=== PATIENT | male | born 1950 | race Caucasian/White ===

== ENCOUNTER 2022-06-22 07:44 | Day surgery (SDC) | payer MEDICARE, SELFPAY ==
[2022-06-16 10:12] VITALS: BMI 38.3
--- NOTE | 2022-06-22 08:07 | WPDHPUPDATE1 ---
History and Physical Update Update Date/Time: 06/22/22 08:07 History and Physical has been reviewed, including an updated exam of the patient. There are NO changes in the patient's condition. Risks, benefits, and alternatives have been discussed and questions answered. Patient agrees to proceed with procedure.
[2022-06-22 08:35] VITALS: BP 181/83; PULSE 54; RESP 20; TEMP 36.7; O2SAT 100
--- NOTE | 2022-06-22 08:35 | WPDANESEPPF ---
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 Patient Data Age: 72 Gender: M Height: 1.7 m Weight: 111 kg Allergies Allergy/AdvReac Type Severity Reaction Status Date / Time lisinopril AdvReac Unknown cough Verified 06/16/22 10:16 Home Medications Medication Instructions Recorded Confirmed Type aspirin 81 mg tablet,delayed 81 mg PO DAILY 02/18/19 06/16/22 History release vit C 50 mg-E 15 unit-zinc cit 4.5 1 tablet PO DAILY 02/18/19 06/16/22 History mg-lutein 2.5 mg-zeaxan chew tablet (iLost) multivitamin 1 tablet PO DAILY 02/19/19 06/16/22 History nitroglycerin 0.4 mg sublingual 0.4 mg sublingual Q5M PRN chest 12/22/20 06/16/22 Rx tablet (Nitrostat) pain #20 tabs metoprolol tartrate 50 mg tablet See Rx Instructions .Route 03/22/22 06/16/22 Rx .COMPLEX #90 tabs valsartan 160 1 tablet PO DAILY #90 tabs 04/12/22 06/16/22 Rx mg-hydrochlorothiazide 12.5 mg tablet clopidogrel 75 mg tablet See Rx Instructions .Route 04/29/22 06/16/22 Rx .COMPLEX #90 tabs atorvastatin 80 mg tablet 80 mg PO HS 06/16/22 06/16/22 History fluticasone propionate 50 2 spray intranasal BID PRN 06/16/22 06/16/22 History mcg/actuation nasal ALLERGIES spray,suspension (Flonase Allergy Relief) Patient hx anesthesia problems: none Family hx anesthesia problems: none Results Review: All pre-operative results and documents have been reviewed as part of the pre-operative evaluation. [facility] Past Medical History Medical History (Updated 06/22/22 @ 08:36 by Augusto Denis MD) Acute otitis media Asbestos exposure Coronary atherosclerosis of [place] coronary artery Essential (primary) hypertension Hepatitis C antibody test negative (~01/13/17) Metabolic syndrome Mixed hyperlipidemia Obesity, unspecified Prediabetes Surgical History Surgical History History of colonoscopy (~07/23/07) History of coronary angioplasty (~1995) Hx of CABG (~03/27/15) Hx of CABG (~05/25/05) Hx of cholecystectomy (~03/27/17) Family History Family History Mother Family history of coronary artery disease, Onset Age: 89 Family history of cardiovascular disease Family history of chronic obstructive pulmonary disease Father Family history of coronary artery disease, Onset Age: 93 Hypertension Family history of elevated blood lipids Family history of cardiovascular disease Acute myocardial infarction Family history of atrial fibrillation Other Family history of allergic disorder Social History Social History (Updated 02/28/22 @ 10:15 by Shila Hudson [facility]) Social History: Caffeine-coffee daily Smoking packs per day: 1 Smoking cigarettes per day: 20.0 Years smoked: 7 Smoking pack-years: 7.00 Smoking status: Former smoker Tobacco type: cigarettes Second hand tobacco smoke exposure: Yes Smoking end date: 03/27/77 Alcohol intake: current Drinks per week: 7 Alcohol use details: beer Substance use: never Lack of Transportation: No Lack of Food: Never True Current Housing: I Have Housing Concerned About Future Housing: No Difficulty Paying Gas/Electric Bills: No Difficulty Paying for Meds: No Currently Unemployed: Decline to Answer Education: Associate Degree Difficulty w/ Childcare or Family Care: No Living arrangements: with family Spiritual care concerns: No Anes - Eval Final PreProcedure Day of Procedure 06/22/22 08:35 Patient weight: obese Heart: regular rate and rhythm Lungs: clear to auscultation and normal air movement Airway: Mallampati scale class II Neurological: alert and oriented L
[2022-06-22] MEDS: TETRACAINE HCL 0.5% OPHTH SOLN 4 ML BTL 1 DROP AFFCTD EYE ×3 (08:55→09:06)
[2022-06-22] MEDS: OFLOXACIN 0.3% OPHTH SOLN 5 ML BTL 1 DROP AFFCTD EYE (08:55)
[2022-06-22] MEDS: LIDOCAINE HCL 1% PF INJ 5 ML VIAL 1 ML AFFCTD EYE (09:58)
[2022-06-22] MEDS: NEOMYCIN/POLYMYXIN/DEXAMETH OP OINT 3.5 GM TUBE 1 APPLIC AFFCTD EYE (09:59)
[2022-06-22 10:06] VITALS: BP 165/101; PULSE 77; RESP 16; O2SAT 98
[2022-06-22] MEDS: acetaZOLAMIDE TAB 250 MG TABLET PO (10:08)
--- NOTE | 2022-06-22 11:48 | W.PM.PROC2 ---
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 After intravenous sedation and placement of monitors, the patient was prepped and draped in the usual sterile manner. A lid speculum was placed. A paracentesis was made, and preservative free 1% lidocaine was instilled in the anterior chamber. The anterior chamber was then filled with Viscoat viscoelastic. A bernard keratome was used to create the wound. Continuous tear anterior capsulotomy was performed. The lens was hydro dissected before being removed with phacoemulsification. The remaining lenticular cortex was removed with aspiration. The capsular bag was polished and filled with viscoelastic material. An intraocular lens was chosen, inspected, irrigated and placed within the capsular bag where it was seen to be centered and stable. The viscoelastic material was aspirated. The wound was closed and found to be watertight. Ciloxan drops were placed in the eye. The speculum was removed. A Rodriguez shield was applied. The patient tolerated the procedure well and left the operating room in satisfactory condition. Implants See chart Complications None Condition Stable Disposition Same day
--- NOTE | 2022-06-22 11:51 | WPDANESPN ---
Anes - Prog Note Post-Op Date/Time: 06/22/22 11:51 Cardiovascular status: normal Respiratory status: normal Airway patency: baseline Mental status: baseline Post-Op hydration status: normal Vital Signs: Last Vital Signs Temp 36.7 C 06/22/22 08:35 Pulse 77 06/22/22 10:06 Resp 16 06/22/22 10:06 BP 165/101 H 06/22/22 10:06 Pulse Ox 98 06/22/22 10:06 O2 Del Method Room Air 06/22/22 10:06 Pain Score (VAS): 0 Post-procedural complaints: none Patient Feedback: Patient satisfied with anesthetic care.
== END 2022-06-22 10:19 | disposition home or self-care (01) ==
PROVIDERS: PCP Family Medicine; Visit Provider Student in an Organized Health Care Education/Training Program
PROC: (CPT 66983; principal; 2022-06-22 09:10)
DX: H25.11 Age-related nuclear cataract, right eye (principal)
CPT/HCPCS: 66984

== ENCOUNTER 2022-07-26 13:53 | Outpatient (CLI) | payer MEDICARE, SELFPAY ==
--- NOTE | ~2022-07-26 | US_ITS ---
EXAMINATION: US art doppler w press LE BI DATE: 07/26/2022 15:50 INDICATION: Peripheral arterial disease. TECHNIQUE: Segmental pressures and plethysmographic and Doppler waveforms of the brachial and lower e xtremity arteries were obtained. COMPARISON: None. FINDINGS: Right and left brachial artery pressures of 151 mm Hg and 140 mm Hg, respectively, are concordant (no rmal difference <= 30 mmHg). The right thigh and below-knee pressures could not be measured due to inability to cuff occlude the a rteries. The right ankle-brachial index (LOU) is 1.05 (normal >= 0.9-1.0). The right great toe-brachi al index (TBI) is 0.22 (normal >= 0.65). Arterial Doppler waveforms are biphasic from common femoral artery to dorsalis pedis and triphasic in posterior tibial artery. The left thigh, below knee, and ankle pressures could not be measured due to inability to cuff occlud e the arteries. The left LOU could not be measured. The left TBI is 0.26. Arterial Doppler waveforms are biphasic from common femoral artery to the ankle. IMPRESSION: 1. Decreased TBIs, normal right LOU, nondiagnostic left LOU, consistent with arterial occlusive disea se. Note that ABIs may be overestimated if arteries are calcified. Reviewed, dictated and finalized at location A. IMPRESSION: 1. Decreased TBIs, normal right LOU, nondiagnostic left LOU, consistent with ar terial occlusive disease. Note that ABIs may be overestimated if arteries are c alcified.
== END 2022-07-26 13:54 | disposition home or self-care (01) ==
PROVIDERS: PCP Family Medicine; Visit Provider Podiatrist Foot & Ankle Surgery
DX: I73.9 Peripheral vascular disease, unspecified (principal); Z01.818 Encounter for other preprocedural examination
CPT/HCPCS: 93923

== ENCOUNTER 2022-11-29 13:31 | Emergency (ER) | payer MEDICARE, SELFPAY ==
--- NOTE | 2022-11-29 13:36 | ED.URI ---
HPI - URI/Sore Throat General Chief Complaint: Upper Respiratory Infection Stated Complaint: Sinus Infection;Fever Source: patient and RN notes reviewed History of Present Illness HPI Narrative: 72 yo M presents to urgent care with complaints of congestion, sinus tenderness, his upper teeth hurting, and low grade fever the other night. Pt states his symptoms started Monday evening and believe they are getting worse. Denies any chest pain, SOB, vomiting, or diarrhea. Denies any ear pain or sore throat. Pt has been taking Flonase and Sudafed at home. Related Data Home Medications Medication Instructions Recorded Confirmed vit C 50 mg-E 15 unit-zinc cit 4.5 1 tablet PO DAILY 02/18/19 11/29/22 mg-lutein 2.5 mg-zeaxan chew tablet ([place]) multivitamin 1 tablet PO DAILY 02/19/19 11/29/22 fluticasone propionate 50 2 spray intranasal BID PRN 06/16/22 11/29/22 mcg/actuation nasal ALLERGIES spray,suspension (Flonase Allergy Relief) nitroglycerin 0.4 mg sublingual 0.4 mg sublingual Q5M PRN chest 11/08/22 11/29/22 tablet (Nitrostat) pain rivaroxaban 20 mg tablet (Xarelto) 20 mg PO DAILY 11/08/22 11/29/22 Allergies Allergy/AdvReac Type Severity Reaction Status Date / Time lisinopril AdvReac Unknown cough Verified 11/29/22 13:36 Review of Systems Review of Systems: Pertinent positives and pertinent negatives per HPI. [facility] Past Medical History Medical History Acute otitis media Asbestos exposure Coronary atherosclerosis of [place] coronary artery Essential (primary) hypertension Hepatitis C antibody test negative (~01/13/17) Metabolic syndrome Mixed hyperlipidemia Obesity, unspecified Prediabetes Surgical History Surgical History History of colonoscopy (~07/23/07) History of coronary angioplasty (~1995) Hx of CABG (~03/27/15) Hx of CABG (~05/25/05) Hx of cholecystectomy (~03/27/17) Family History Family History Mother Family history of coronary artery disease, Onset Age: 89 Family history of cardiovascular disease Family history of chronic obstructive pulmonary disease Father Family history of coronary artery disease, Onset Age: 93 Hypertension Family history of elevated blood lipids Family history of cardiovascular disease Acute myocardial infarction Family history of atrial fibrillation Other Family history of allergic disorder Social History Social History Social History: Caffeine-coffee daily Smoking packs per day: 1 Smoking cigarettes per day: 20.0 Years smoked: 7 Smoking pack-years: 7.00 Smoking status: Former smoker Tobacco type: cigarettes Second hand tobacco smoke exposure: Yes Smoking end date: 03/27/77 Alcohol intake: current Drinks per week: 7 Alcohol use details: beer Substance use: never Lack of Transportation: No Lack of Food: Never True Current Housing: I Have Housing Concerned About Future Housing: No Difficulty Paying Gas/Electric Bills: No Difficulty Paying for Meds: No Currently Unemployed: Decline to Answer Education: Associate Degree Difficulty w/ Childcare or Family Care: No Living arrangements: with family Spiritual care concerns: No Comments At the time of my signature, I reviewed and agree with the nursing past medical, surgical, social, and family history. There is no relevant family history pertinent to the patient complaint. Exam Narrative: GENERAL: This is a well-nourished, well-developed patient, in no apparent distress. HEAD: normocephalic, atraumatic. EYES: Sclera clear/white. Vision is grossly intact. EARS: External ears normal, auditory canals clear and without drainage, TMs normal without perforation. Hearing grossly intact. NOSE: External nose norm
[2022-11-29 13:42] VITALS: BP 136/74; PULSE 76; RESP 18; TEMP 36.3; O2SAT 99
[2022-11-29 13:43] VITALS: BP 136/74; PULSE 76; RESP 18; TEMP 36.3; O2SAT 99
== END 2022-11-29 13:50 | disposition home or self-care (01) ==
PROVIDERS: Emergency Provider Nurse Practitioner Family; PCP Family Medicine
DX: J32.9 Chronic sinusitis, unspecified (principal); Z87.891 Personal history of nicotine dependence; I25.10 Atherosclerotic heart disease of native coronary artery without angina pectoris; I10 Essential (primary) hypertension; E78.2 Mixed hyperlipidemia; E66.9 Obesity, unspecified; Z68.39 Body mass index [BMI] 39.0-39.9, adult; E88.81 Metabolic syndrome and other insulin resistance; Z95.1 Presence of aortocoronary bypass graft
CPT/HCPCS: 99213; G0463

== ENCOUNTER 2022-12-27 01:27 | Day surgery (SDC) | payer MEDICARE, SELFPAY ==
[2022-12-20 08:35] VITALS: BMI 38.7
[2022-12-27 08:07] VITALS: BP 148/77; PULSE 77; RESP 20; TEMP 36.2; O2SAT 99
[2022-12-27] MEDS: LACTATED RINGERS 1,000 ML 150 ML IV CONT (08:14)
--- NOTE | 2022-12-27 08:50 | PM.HPGS ---
History of Present Illness History of Present Illness Consent: Risks, benefits, and alternatives have been discussed and questions answered. Patient agrees to proceed with procedure. Chief complaint: hx colon polyps Narrative: Jimy Ryder is a 72 year old male Presents for screening colonoscopy. Patient was found to have adenomatous colon polyp removed at the time of previous colonoscopy in 2018. Patient's current weight appetite and bowel movements are normal. Patient denies abdominal pain. He has had no bleeding. Family history noncontributory. Review of Systems Review of Systems: Review of systems noncontributory. [facility] Past Medical History Medical History Acute otitis media Asbestos exposure Coronary atherosclerosis of [place] coronary artery Essential (primary) hypertension Hepatitis C antibody test negative (~01/13/17) Metabolic syndrome Mixed hyperlipidemia Obesity, unspecified Prediabetes Surgical History Surgical History History of colonoscopy (~07/23/07) History of coronary angioplasty (~1995) Hx of CABG (~03/27/15) Hx of CABG (~05/25/05) Hx of cholecystectomy (~03/27/17) Family History Family History Mother Family history of coronary artery disease, Onset Age: 89 Family history of cardiovascular disease Family history of chronic obstructive pulmonary disease Father Family history of coronary artery disease, Onset Age: 93 Hypertension Family history of elevated blood lipids Family history of cardiovascular disease Acute myocardial infarction Family history of atrial fibrillation Other Family history of allergic disorder Social History Social History Social History: Caffeine-coffee daily Smoking packs per day: 1 Smoking cigarettes per day: 20.0 Years smoked: 7 Smoking pack-years: 7.00 Smoking status: Former smoker Tobacco type: cigarettes Second hand tobacco smoke exposure: Yes Smoking end date: 03/27/77 Alcohol intake: current Drinks per week: 1 Alcohol use details: beer Substance use: never Substance use type: does not use Lack of Transportation: No Lack of Food: Never True Current Housing: I Have Housing Concerned About Future Housing: No Difficulty Paying Gas/Electric Bills: No Difficulty Paying for Meds: No Currently Unemployed: Decline to Answer Education: Associate Degree Difficulty w/ Childcare or Family Care: No Living arrangements: with family Spiritual care concerns: No Meds Home Medications and Allergies Home Medications Medication Instructions Recorded Confirmed Type vit C 50 mg-E 15 unit-zinc cit 4.5 1 tablet PO DAILY 02/18/19 12/27/22 History mg-lutein 2.5 mg-zeaxan chew tablet (ARI) multivitamin 1 tablet PO DAILY 02/19/19 12/27/22 History fluticasone propionate 50 2 spray intranasal BID PRN 06/16/22 12/27/22 History mcg/actuation nasal ALLERGIES spray,suspension (Flonase Allergy Relief) valsartan 160 1 tablet PO DAILY #90 tabs 07/06/22 12/27/22 Rx mg-hydrochlorothiazide 12.5 mg tablet atorvastatin 80 mg tablet 80 mg PO HS #90 tabs 07/18/22 12/27/22 Rx nitroglycerin 0.4 mg sublingual 0.4 mg sublingual Q5M PRN chest 11/08/22 12/27/22 History tablet (Nitrostat) pain rivaroxaban 20 mg tablet (Xarelto) 20 mg PO DAILY 11/08/22 12/27/22 History acetaminophen 500 mg tablet 1,000 mg PO DAILY 12/20/22 12/27/22 History (Acetaminophen Extra Strength) clopidogrel 75 mg tablet 75 mg PO DAILY 12/20/22 12/27/22 History metoprolol tartrate 50 mg tablet 25 mg PO BID 12/20/22 12/27/22 History phenylephrine HCl 10 mg tablet 10 mg PO BID 12/20/22 12/27/22 History doxycycline hyclate 20 mg tablet 20 mg PO Q12H 12/22/22 12/27/22 History Allergies
--- NOTE | 2022-12-27 09:21 | WPDANESEPPF ---
Anes - Initial Pre Proc Eval Procedure: Operation Date: 12/27/22 09:30 Proposed Procedures p Colonoscopy - Pablo Whitten MD Date/Time: 12/27/22 09:21 Surgeon: Pablo Whitten MD Pre Op Diagnosis: hx colon polyps Patient Data Age: 72 Gender: M Height: 1.68 m Weight: 110.5 kg Last Vital Signs Temp 97.1 F L 12/27/22 08:07 Pulse 77 12/27/22 08:07 Resp 20 12/27/22 08:07 BP 148/77 H 12/27/22 08:07 Pulse Ox 99 12/27/22 08:07 O2 Del Method Room Air 12/27/22 08:07 Allergies Allergy/AdvReac Type Severity Reaction Status Date / Time No Known Allergies Allergy Verified 12/27/22 08:06 Home Medications Medication Instructions Recorded Confirmed Type vit C 50 mg-E 15 unit-zinc cit 4.5 1 tablet PO DAILY 02/18/19 12/27/22 History mg-lutein 2.5 mg-zeaxan chew tablet (In[place]z) multivitamin 1 tablet PO DAILY 02/19/19 12/27/22 History fluticasone propionate 50 2 spray intranasal BID PRN 06/16/22 12/27/22 History mcg/actuation nasal ALLERGIES spray,suspension (Flonase Allergy Relief) valsartan 160 1 tablet PO DAILY #90 tabs 07/06/22 12/27/22 Rx mg-hydrochlorothiazide 12.5 mg tablet atorvastatin 80 mg tablet 80 mg PO HS #90 tabs 07/18/22 12/27/22 Rx nitroglycerin 0.4 mg sublingual 0.4 mg sublingual Q5M PRN chest 11/08/22 12/27/22 History tablet (Nitrostat) pain rivaroxaban 20 mg tablet (Xarelto) 20 mg PO DAILY 11/08/22 12/27/22 History acetaminophen 500 mg tablet 1,000 mg PO DAILY 12/20/22 12/27/22 History (Acetaminophen Extra Strength) clopidogrel 75 mg tablet 75 mg PO DAILY 12/20/22 12/27/22 History metoprolol tartrate 50 mg tablet 25 mg PO BID 12/20/22 12/27/22 History phenylephrine HCl 10 mg tablet 10 mg PO BID 12/20/22 12/27/22 History doxycycline hyclate 20 mg tablet 20 mg PO Q12H 12/22/22 12/27/22 History Patient hx anesthesia problems: none Family hx anesthesia problems: none Results Review: All pre-operative results and documents have been reviewed as part of the pre-operative evaluation. [facility] Past Medical History Medical History Acute otitis media Asbestos exposure Coronary atherosclerosis of [place] coronary artery Essential (primary) hypertension Hepatitis C antibody test negative (~01/13/17) Metabolic syndrome Mixed hyperlipidemia Obesity, unspecified Prediabetes Surgical History Surgical History History of colonoscopy (~07/23/07) History of coronary angioplasty (~1995) Hx of CABG (~03/27/15) Hx of CABG (~05/25/05) Hx of cholecystectomy (~03/27/17) Family History Family History Mother Family history of coronary artery disease, Onset Age: 89 Family history of cardiovascular disease Family history of chronic obstructive pulmonary disease Father Family history of coronary artery disease, Onset Age: 93 Hypertension Family history of elevated blood lipids Family history of cardiovascular disease Acute myocardial infarction Family history of atrial fibrillation Other Family history of allergic disorder Social History Social History Social History: Caffeine-coffee daily Smoking packs per day: 1 Smoking cigarettes per day: 20.0 Years smoked: 7 Smoking pack-years: 7.00 Smoking status: Former smoker Tobacco type: cigarettes Second hand tobacco smoke exposure: Yes Smoking end date: 03/27/77 Alcohol intake: current Drinks per week: 1 Alcohol use details: beer Substance use: never Substance use type: does not use Lack of Transportation: No Lack of Food: Never True Current Housing: I Have Housing Concerned About Future Housing: No Difficulty Paying Gas/Electric Bills: No Difficulty Paying for Meds: No Currently Unemployed: Decline to Answer Education: As
[2022-12-27 09:42] VITALS: BP 121/76; PULSE 74; RESP 22; O2SAT 94
[2022-12-27 09:52] VITALS: BP 119/69; PULSE 64; RESP 20; O2SAT 97
[2022-12-27 10:02] VITALS: BP 145/68; PULSE 72; RESP 16; O2SAT 97
== END 2022-12-27 10:12 | disposition home or self-care (01) ==
PROVIDERS: PCP Family Medicine; Visit Provider Internal Medicine Gastroenterology
PROC: 0DJD8ZZ Inspection of Lower Intestinal Tract, Via Natural or Artificial Opening Endoscopic (ICD-10-PCS; CPT 45378; principal; 2022-12-27 09:30)
DX: Z12.11 Encounter for screening for malignant neoplasm of colon (principal); K57.30 Diverticulosis of large intestine without perforation or abscess without bleeding; Z86.010 Personal history of colon polyps; I25.10 Atherosclerotic heart disease of native coronary artery without angina pectoris; I10 Essential (primary) hypertension; E78.2 Mixed hyperlipidemia; R73.03 Prediabetes; E66.01 Morbid (severe) obesity due to excess calories; Z68.39 Body mass index [BMI] 39.0-39.9, adult; Z95.1 Presence of aortocoronary bypass graft; Z79.01 Long term (current) use of anticoagulants; Z79.02 Long term (current) use of antithrombotics/antiplatelets; Z87.891 Personal history of nicotine dependence
CPT/HCPCS: G0105; J2704; J7120

== ENCOUNTER 2023-07-19 09:16 | Outpatient (CLI) | payer MEDICARE, SELFPAY ==
--- NOTE | ~2023-07-19 | US_ITS ---
EXAMINATION: US soft tissue chest DATE: 07/19/2023 09:34 INDICATION: Intra-abdominal and pelvic swelling, mass and lump. TECHNIQUE: Multiple grayscale and Doppler ultrasound images of the chest were obtained. COMPARISON: chest CT 09/19/2005 FINDINGS: There is a subcutaneous shadowing mass to the left of midline in the area of the sternum. IMPRESSION: 1. Subcutaneous mass to the left of midline in the area of the sternum, most likely a component of th e patient's wire fixation from old sternotomy. Reviewed, dictated and finalized at location E. IMPRESSION: 1. Subcutaneous mass to the left of midline in the area of the sternum, most li nyasia a component of the patient's wire fixation from old sternotomy.
== END 2023-07-19 09:17 ==
PROVIDERS: PCP Family Medicine; Visit Provider Nurse Practitioner
DX: R19.00 Intra-abdominal and pelvic swelling, mass and lump, unspecified site (principal)
CPT/HCPCS: 76604

== ENCOUNTER 2023-08-04 11:43 | Emergency (ER) | payer MEDICARE, SELFPAY ==
--- NOTE | ~2023-08-04 | XR_ITS ---
EXAMINATION: XR chest 2V DATE: 08/04/2023 12:13 INDICATION: Productive cough. Wheezing. TECHNIQUE: Frontal and lateral views of the chest were obtained. COMPARISON: Chest 2 views 05/13/2015 FINDINGS: There is no pneumonia, pleural effusion, or pneumothorax. The heart size is normal. There a re prominent pericardial fat pads. Median sternotomy wires and mediastinal surgical clips are seen, l ikely from prior coronary artery bypass grafting. Surgical clips in the right upper quadrant are like ly from cholecystectomy. IMPRESSION: 1. No acute cardiopulmonary disease. Reviewed, dictated and finalized at location A.
--- NOTE | 2023-08-04 11:49 | ED.URI ---
HPI - URI/Sore Throat General Chief Complaint: Upper Respiratory Infection Stated Complaint: COUGH Time Seen by Provider: 08/04/23 11:50 Source: patient Mode of arrival: ambulatory Limitations: no limitations History of Present Illness HPI Narrative: Jimy is a 73-year-old male patient presenting to the clinic today with complaints cough, sinus congestion, and headache x3 weeks. He reports he is coughing up clear to whitish phlegm. Denies any shortness of breath but is having a lot of mucus and cannot coughing. States he has had a low-grade fever of 99-100 degrees F. Former smoker. No history of COPD or asthma. MD elicited complaint: cough, nasal congestion and sinus pain Related Data Home Medications Medication Instructions Recorded Confirmed multivitamin 1 tablet PO DAILY 02/19/19 08/04/23 fluticasone propionate 50 2 spray intranasal BID PRN 06/16/22 08/04/23 mcg/actuation nasal ALLERGIES spray,suspension (Flonase Allergy Relief) rivaroxaban 20 mg tablet (Xarelto) 20 mg PO DAILY 11/08/22 08/04/23 acetaminophen 500 mg tablet 1,000 mg PO DAILY 12/20/22 08/04/23 (Acetaminophen Extra Strength) vitamins A,C,E-gnhy-caqadv 2,148 2 tablet PO BID 08/04/23 08/04/23 mcg-113 mg-45 mg-17.4 mg tablet (PreserVision AREDS) Allergies Allergy/AdvReac Type Severity Reaction Status Date / Time No Known Allergies Allergy Verified 08/04/23 11:51 Review of Systems Review of Systems: Pertinent positives per HPI. Patient denies any fever, chills, rash, headache, visual changes, dizziness, shortness of breath, chest pain, palpitations, nausea, vomiting, diarrhea, constipation, abdominal pain, or any urinary issues. [facility] Past Medical History Medical History Acute otitis media Asbestos exposure Coronary atherosclerosis of [place] coronary artery Essential (primary) hypertension Hepatitis C antibody test negative (~01/13/17) Metabolic syndrome Mixed hyperlipidemia Obesity, unspecified Prediabetes Surgical History Surgical History History of colonoscopy (~07/23/07) History of coronary angioplasty (~1995) Hx of CABG (~03/27/15) Hx of CABG (~05/25/05) Hx of cholecystectomy (~03/27/17) Family History Family History Mother Family history of coronary artery disease, Onset Age: 89 Family history of cardiovascular disease Family history of chronic obstructive pulmonary disease Father Family history of coronary artery disease, Onset Age: 93 Hypertension Family history of elevated blood lipids Family history of cardiovascular disease Acute myocardial infarction Family history of atrial fibrillation Other Family history of allergic disorder Social History Social History Social History: Caffeine-coffee daily Smoking packs per day: 1 Smoking cigarettes per day: 20.0 Years smoked: 7 Smoking pack-years: 7.00 Smoking status: Former smoker Tobacco type: cigarettes Second hand tobacco smoke exposure: Yes Smoking end date: 03/27/77 Alcohol intake: current Drinks per week: 1 Alcohol use details: beer Substance use: never Substance use type: does not use Lack of Transportation: No Lack of Food: Never True Current Housing: I Have Housing Concerned About Future Housing: No Difficulty Paying Gas/Electric Bills: No Difficulty Paying for Meds: No Currently Unemployed: Decline to Answer Education: Associate Degree Difficulty w/ Childcare or Family Care: No Living arrangements: with family Spiritual care concerns: No Comments At the time of my signature, I reviewed and agree with the nursing past medical, surgical, social, and family history. There is no relevant family history pertinent to the patient complaint. Exam Narrative:
[2023-08-04 11:58] VITALS: BP 159/92; PULSE 89; RESP 16; TEMP 36.3; O2SAT 99
== END 2023-08-04 12:39 | disposition home or self-care (01) ==
PROVIDERS: Emergency Provider Nurse Practitioner Family; PCP Nurse Practitioner
DX: J40 Bronchitis, not specified as acute or chronic (principal); I25.10 Atherosclerotic heart disease of native coronary artery without angina pectoris; I10 Essential (primary) hypertension; E78.2 Mixed hyperlipidemia; E66.9 Obesity, unspecified; Z68.38 Body mass index [BMI] 38.0-38.9, adult; Z87.891 Personal history of nicotine dependence; Z79.01 Long term (current) use of anticoagulants
CPT/HCPCS: 71046; 99213; G0463

== ENCOUNTER 2023-11-14 14:20 | Outpatient (CLI) | payer MEDICARE, SELFPAY ==
--- NOTE | ~2023-11-14 | XR_ITS ---
XR hip RT min 2V Ordering provider: Mariam Velasquez HIGHW[facility] ENGINEERING TEACHER-C History: . M25.551 - Pain in right hip . Comparison: None. FINDINGS: BONES: No acute fracture or dislocation. HIP JOINT SPACES: Normal. SACROILIAC JOINT SPACES/LUMBAR SPINE: The sacroiliac joint spaces are normal. Mild degenerative winslow es of the visualized lower lumbar spine. PUBIC SYMPHYSIS: Normal. SOFT TISSUES: Normal. IMPRESSION: No acute osseous abnormality pelvis and right hip. Reviewed, dictated and finalized at location A.
== END 2023-11-14 14:21 ==
PROVIDERS: PCP Nurse Practitioner; Visit Provider Nurse Practitioner
DX: M25.551 Pain in right hip (principal)
CPT/HCPCS: 73502

== ENCOUNTER 2024-05-10 11:41 | Outpatient (CLI) | payer MEDICARE, SELFPAY ==
--- OUTSIDE RECORDS SUMMARY | 2024-05-10 11:43 | XMS_ITS | Clinical Summary ---
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 Gender Identity Not on file Sexual Orientation Not on file Plan of Treatment Health Maintenance Due Date Last Done Comments DTAP/TDAP/TD VACCINES (1 - Tdap) 1968 COLORECTAL SCREENING 1994 Colorectal Cancer Screening 1994 FIT-DNA Q 3 years 1994 FIT/FOBT Q 1 year 1994 Flex Sig/CT Colonography Q 5 years 1994 PNEUMOCOCCAL VACCINE 65+ YEARS (1 of 1 - PCV) 03/16/19 99 ZOSTER VACCINE (1 of 2) 1999 INFLUENZA VACCINE (#1) 2023 RSV VACCINE (60+ or ) (1 - 1-dose 75+ series) 2024 Care Teams Gear Repair Supervisor Relationship Specialty Start Date End Date Aaron Wesley MD [address] [place] [phone] PCP - General 06/30/05
--- OUTSIDE RECORDS SUMMARY | 2024-05-10 11:43 | XMS_ITS | Encounter Summary ---
Author Organization [facility] Address [address] [place] [address] Care Team Providers Care Belt Picker Name Role Phone Aaron Wesley MD Primary Care Provider [phone] Encounter Details Date Type Department Care Team (Late st Contact Info) Description 05/27/2005 Outpatient Historical [facility] Cardiovas and Thor Surg at [facility] Heart [address] [address] John Hurd MD [address] [place] [phone] Social History Tobacco Use Types Packs/Day Years Used Date Smoking Tobacco: Never Assessed Sex and Gender Information Value Date Recorded Sex Assigned at Not on file 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
--- OUTSIDE RECORDS SUMMARY | 2024-05-10 11:43 | XMS_ITS | Encounter Summary ---
Author Organization [facility] Address [address] [place] [address] Care Team Providers Care Fur Sewer Name Role Phone Aaron Wesley MD Primary Care Provider [phone] Encounter Details Date Type Department Care Team (Late st Contact Info) Description 06/30/2005 Outpatient Historical [facility] Cardiovas and Thor Surg at [facility] Heart [address] [address] John Hurd MD [address] [place] [phone] Social History Tobacco Use Types Packs/Day Years Used Date Smoking Tobacco: Never Assessed Sex and Gender Information Value Date Recorded Sex Assigned at Not on file 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
--- OUTSIDE RECORDS SUMMARY | 2024-05-10 11:43 | XMS_ITS | Encounter Summary ---
Author Organization [facility] Address [address] [place] [address] Care Team Providers Care Cso Name Role Phone Aaron Wesley MD Primary Care Provider [phone] Encounter Details Date Type Department Care Team (Late st Contact Info) Description 06/30/2005 Outpatient Historical [facility] Support Serv. (Adt Cardiology-[facility]) [address] 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
--- OUTSIDE RECORDS SUMMARY | 2024-05-10 11:43 | XMS_ITS | Encounter Summary ---
Author Organization [facility] Address [address] [place] [address] Care Team Providers Care Track And Field Coach Name Role Phone Aaron Wesley MD Primary Care Provider [phone] Encounter Details Date Type Department Care Team (Late st Contact Info) Description 06/01/2005 Outpatient Historical [facility] Support Serv. ([facility]t Cardiology[facility]) [address] 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
--- OUTSIDE RECORDS SUMMARY | 2024-05-10 11:43 | XMS_ITS | Encounter Summary ---
Author Organization [facility] Address 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
--- OUTSIDE RECORDS SUMMARY | 2024-05-10 11:43 | XMS_ITS | Encounter Summary ---
Author Organization [facility] Address [address] [place] [address] Care Team Providers Care Hospitalist Physician Name Role Phone Aaron Wesley MD Primary Care Provider [phone] Encounter Details Date Type Department Care Team (Late st Contact Info) Description 05/30/2005 Outpatient Historical [facility] Cardiovas and Thor Surg at [facility] Heart [address] [address] John Hurd MD [address] [place] [phone] Social History Tobacco Use Types Packs/Day Years Used Date Smoking Tobacco: Never Assessed Sex and Gender Information Value Date Recorded Sex Assigned at Not on file Legal Sex Male 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
--- OUTSIDE RECORDS SUMMARY | 2024-05-10 11:43 | XMS_ITS | Encounter Summary ---
Author Organization [facility] Address [address] [place] [address] Care Team Providers Care Police Superintendent Name Role Phone Aaron Wesley MD Primary Care Provider [phone] Encounter Details Date Type Department Care Team (Late st Contact Info) Description 05/31/[address] [facility] Support Serv. (Adt Cardiology[facility]) [address] 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
--- OUTSIDE RECORDS SUMMARY | 2024-05-10 11:43 | XMS_ITS | Encounter Summary ---
Author Organization [facility] Address [address] [place] [address] Care Team Providers Care Photography Instructor Name Role Phone Aaron Wesley MD Primary Care Provider [phone] Encounter Details Date Type Department Care Team (Late st Contact Info) Description 05/31/2005 Outpatient Historical [facility] Support Serv. (Adt Cardiology-[facility]) [address] 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
--- OUTSIDE RECORDS SUMMARY | 2024-05-10 11:44 | XMS_ITS | Referral Summary ---
Author Organization [facility] [address] Address [address] [place] [address] Care Team Providers Care Real Estate Investment Analyst Name Role Phone Eileen Shields DO Primary Care Provider [phone] Allergies No known active allergies Medications nitroglycerin (NITROSTAT) 0.[address] 1 tablet by sublingual route at the 1st sign of attack; may repeat every 5 min until relief; if pain persists after 3 tablets in 15 min, prompt medical attention is recommended 25 1 04/11/19 14 Active clopidogrel (PLAVIX) 75 mg tablet take 1 by Oral route every day 90 3 04/11/19 14 Active valsartan-hydr oCHLOROthiazid e (DIOVAN-HCT) 160-12.5 mg per tablet take 1 tablet by oral route every day 0 0 01/21/20 16 Active cbbdychu-rcm-N F-zudyedv-stuj in 0.4-300-250 mg-mcg-mcg tabletIndicati ons:Vitamin Deficiency Prevention 1 tablet Active multivitamin-m inerals-lutein tablet Take by mouth. 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 artery 12/30 Overview (07/01/2016): Coronary arteriosclerosis in iliamna artery Social History Tobacco Use Types Packs/Day Years Used Date Smoking Tobacco: Former Smokeless Tobacco: Never Tobacco Cessation:Counseling Given: Not Answered Alcohol Use Standard Drinks/Week Comments Yes 0 (1 standard drink = 0.6 oz pur e alcohol) Sex and Gender Information Value Date Recorded Sex Assigned at Not on file Legal Sex Male 1:23 PM [employer]ICE [employer] Gender Identity Not on file Sexual Orientation Not on file Last Filed Vital Signs Vital Sign Reading Time Taken Comments Blood Pressure 120/72 11/21/2023 9:41 AM CDT Pulse 82 11/21/2023 9:41 AM CDT Temperature 36.6 C (97.8 F) 01/30/2020 8:09 AM [employer]ICE [employer]ARD Respiratory Rate - - Oxygen Saturation 96% 11/21/2023 9:41 AM CDT Inhaled Oxygen Concentration - - Weight 114.4 kg (252 lb 3.2 oz) 11/21/2023 9:41 AM CDT Height 170.2 cm (5' 7 ) 11/21/2023 9:41 AM CDT Body Mass Index 39.5 11/21/2023 9:41 AM CDT Plan of Treatment Not on file Procedures Procedure Name Priority Date/Time Associated Diagnosis Comments CT ABDOMEN PELVIS W CONTRAST Routine 04/11/2015 11:32 AM POLICE GUARD from Last 3 Months or Most Recently Relevant to Health Maintenance Results * CT Abdomen Pelvis W Contrast (04/11/2015 11:32 AM POLICE GUARD) Anatomical Region Laterality Modality Body N/A Computed Tomogra phy 04/11/2015 11:3 2 AM POLICE GUARD Narrative 04/13/2015 3:23 PM POLICE GUARD ABEL GREGORY M.D. ANA ROPER M.D. FINAL REPORT The radiology attending physician has personally reviewed this study, and has reviewed and/or edited this written report and agrees with it. ACC# Date Time Exam [id number] Apr 11, 2015 11:32:[id number] Abd & Pelvis with cont ACC# Date Time Exam [id number] Apr 11, 2015 11:32:[id number] Abd & Pelvis with cont EXAMINATION: CT abdomen pelvis with contrast HISTORY: 65-year-old man with chest pain. The study was performed to evaluate for aortic atherosclerosis. TECHNIQUE: CT of the abdomen and pelvis was performed after the uneventful administration of 92 mL Optiray-350. COMPARISON: No priors available for comparison. FINDINGS: The lungs are clear without evidence of pneumonic consolidation or pulmonary edema. No pleural effusion or pneumothorax. No pericardial effusion. Arthrosclerotic calcifications are seen within the right coronary artery. The liver is normal without evidence of intrahepatic biliary duct dilation or focal lesion. Several gallstones are seen within the gallbladder. No evidence of intrahepatic biliary duct dilatation is seen. The pancreas, adrenal glands, and spleen are normal. The kidneys are normal without evidence of hydronephrosis. The stomach and small bowel are normal without evidence of obstruction or inflammation. Scattered diverticula are seen throughout the colon. No abdominal or pelvic lymphadenopathy is identified. Atherosclerotic calcifications are seen within the abdominal aorta. The infrarenal aorta is ectatic. A left retroaortic renal vein is noted. Mild stenosis of the right common femoral artery is demonstrated. Otherwise, the celiac axis, the superior mesenteric artery, and inferior mesenteric artery are normal without evidence of obstruction or aneurysm. The bladder is normal. There is mild enlargement of the prostate gland. Inflammatory stranding is seen within the right groin consistent with recent angiographic procedure. No free intraperitoneal gas or fluid is identified. Bone windows demonstrates mild multilevel degenerative disc disease of the lumbar spine. No evidence of osseous lytic or blastic lesion. IMPRESSION: No acute intra-abdominal process. Addendum: CT examination of the chest with contrast was also performed. Patient with CABG x3 in 2005 and planned sternotomy procedure. Chest CT was performed following the administration of 120 mL Optiray-350 intravenous contrast. Images of the chest were acquired in the arterial phase. Images were transferred to an independent workstation for additional 3D post-processing. Sternal wires: There are 6 sternal wires. The first 2 wires are cerclage wires, wires 3-6 are [id number]. First sternal wire is 9 mm anterior to the left brachiocephalic vein. Second sternal wire is 13 mm anterior to the left brachiocephalic vein. Sternal wires 3-6 are immediately juxtaposed to the left ventricular outflow tract. The patient is status post CABG. Evaluation of the coronary arteries and bypass grafts is limited because of technique. Possible FLEMING graft to the LAD is seen although not well visualized. Left saphenous vein graft to an obtuse marginal branch and right saphenous vein graft to the RCA are seen. The left saphenous vein graft is 17 mm posterior to the sternomanubrial junction. There is subsegmental atelectasis of the right middle lobe. Abdominal Aortic and Pelvic Arterial Smallest Diameter Measurements (made from centerline curved MPRs): Infrarenal aorta: 19 mm x 16 mm Right common iliac artery: 12 mm x 9 mm. There is moderate calcification. Left common iliac artery: 12 mm x 11 mm . There is mild calcification. There is no tortuosity of the bilateral common iliac arteries. Right external iliac artery: 10 mm x 9 mm. There is moderate calcification. Left external iliac artery: 11 mm x 10 mm. There is mild calcification. There is no tortuosity of the bilateral external iliac arteries. Right common femoral artery: 8 x 7 mm. There is moderate calcification. Left common femoral artery: 10 x 8 mm. There is moderate calcification. There is no tortuosity of the bilateral femoral arteries. 1. Location of vasculature posterior to sternum as described above. Of note, there is a left saphenous vein graft to an obtuse marginal branch which is 17 mm posterior to the sternomanubrial junction. 2. Abdominal aortic and pelvic arterial smallest diameter measurements as described above. Requested By: JARETH SAAVEDRA M.D. Dictated By: ANA ROPER M.D. on Apr 13 2015 1:06P This document has been electronically signed by: ABEL GREGORY M.D. on Apr 13 2015 1:12P Addendum Dictated by: RENEE KRAMER M.D. on Apr 13 2015 2:40P This Addendum has been electronically signed by: ABEL GREGORY M.D. on Apr 13 2015 3:23P [id number] Procedure Note Provider, MD Mikayla - 07/31/2016 ABEL HEIKEN, M.D. ANA RIMER, M.D. FINAL REPORT The radiology attending physician has personally reviewed this study, and has reviewed and/or edited this written report and agrees with it. ACC# Date Time Exam [id number] Apr 11, 2015 11:32:[address] Abd & Pelvis with cont ACC# Date Time Exam [id number] Apr 11, 2015 11:32:[id number] Abd & Pelvis with cont EXAMINATION: CT abdomen pelvis with contrast HISTORY: 65-year-old man with chest pain. The study was performed to evaluate for aortic atherosclerosis. TECHNIQUE: CT of the abdomen and pelvis was performed after the uneventful administration of 92 mL Optiray-350. COMPARISON: No priors available for comparison. FINDINGS: The lungs are clear without evidence of pneumonic consolidation or pulmonary edema. No pleural effusion or pneumothorax. No pericardial effusion. Arthrosclerotic calcifications are seen within the right coronary artery. The liver is normal without evidence of intrahepatic biliary duct dilation or focal lesion. Several gallstones are seen within the gallbladder. No evidence of intrahepatic biliary duct dilatation is seen. The pancreas, adrenal glands, and spleen are normal. The kidneys are normal without evidence of hydronephrosis. The stomach and small bowel are normal without evidence of obstruction or inflammation. Scattered diverticula are seen throughout the colon. No abdominal or pelvic lymphadenopathy is identified. Atherosclerotic calcifications are seen within the abdominal aorta. The infrarenal aorta is ectatic. A left retroaortic renal vein is noted. Mild stenosis of the right common femoral artery is demonstrated. Otherwise, the celiac axis, the superior mesenteric artery, and inferior mesenteric artery are normal without evidence of obstruction or aneurysm. The bladder is normal. There is mild enlargement of the prostate gland. Inflammatory stranding is seen within the right groin consistent with recent angiographic procedure. No free intraperitoneal gas or fluid is identified. Bone windows demonstrates mild multilevel degenerative disc disease of the lumbar spine. No evidence of osseous lytic or blastic lesion. IMPRESSION: No acute intra-abdominal process. Addendum: CT examination of the chest with contrast was also performed. Patient with CABG x3 in 2005 and planned sternotomy procedure. Chest CT was performed following the administration of 120 mL Optiray-350 intravenous contrast. Images of the chest were acquired in the arterial phase. Images were transferred to an independent workstation for additional 3D post-processing. Sternal wires: There are 6 sternal wires. The first 2 wires are cerclage wires, wires 3-6 are [id number]. First sternal wire is 9 mm anterior to the left brachiocephalic vein. Second sternal wire is 13 mm anterior to the left brachiocephalic vein. Sternal wires 3-6 are immediately juxtaposed to the left ventricular outflow tract. The patient is status post CABG. Evaluation of the coronary arteries and bypass grafts is limited because of technique. Possible FLEMING graft to the LAD is seen although not well visualized. Left saphenous vein graft to an obtuse marginal branch and right saphenous vein graft to the RCA are seen. The left saphenous vein graft is 17 mm posterior to the sternomanubrial junction. There is subsegmental atelectasis of the right middle lobe. Abdominal Aortic and Pelvic Arterial Smallest Diameter Measurements (made from centerline curved MPRs): Infrarenal aorta: 19 mm x 16 mm Right common iliac artery: 12 mm x 9 mm. There is moderatecalcification. Left common iliac artery: 12 mm x 11 mm . There is mild calcification. There is no tortuosity of the bilateral common iliac arteries. Right external iliac artery: 10 mm x 9 mm. There is moderate calcification. Left external iliac artery: 11 mm x 10 mm. There is mild calcification. There is no tortuosity of the bilateral external iliac arteries. Right common femoral artery: 8 x 7 mm. There is moderate calcification. Left common femoral artery: 10 x 8 mm. There is moderate calcification. There is no tortuosity of the bilateral femoral arteries. 1. Location of vasculature posterior to sternum as described above. Of note, there is a left saphenous vein graft to an obtuse marginal branch which is 17 mm posterior to the sternomanubrial junction. 2. Abdominal aortic and pelvic arterial smallest diameter measurements as described above. Requested By: JARETH SAAVEDRA M.D. Dictated By: ANA ROPER M.D. on Apr 13 2015 1:06P This document has been electronically signed by: ABEL GREGORY M.D. on Apr 13 2015 1:12P Addendum Dictated by: RENEE KRAMER M.D. on Apr 13 2015 2:40P This Addendum has been electronically signed by: ABEL GREGORY M.D. on Apr 13 2015 3:23P [id number] us Historical Provider MD ALONSO CT PROCEDURES Final R esult from Last 3 Months or Most Recently Relevant to Health Maintenance Insurance MED[employer]ARE [employer] MED[employer] Care Teams Real Estate Investment Analyst Relationship Specialty Start Date End Date Eileen Shields DO PCP - General Family Medicine 11/07/19
--- OUTSIDE RECORDS SUMMARY | 2024-05-10 11:44 | XMS_ITS | Encounter Summary ---
Author Organization [facility] Address [address] [place] [address] Care Team Providers Care Wrapper Leaf Inspector Name Role Phone Aaron Wesley MD Primary Care Provider [phone] Encounter Details Date Type Department Care Team (Latest Contact Info) Description 05/27/2005 Inpatient Historical HIS CARD LAYOUT FORMER John Hurd MD [address] [facility] [address] [place] [address] Morgan Caldwell MD [address] [facility] [address] [place] [id number] CORON ATHEROSCL [place] CORON VESSEL (Primary Dx) Social History Tobacco Use Types Packs/Day Years Used Date Smoking Tobacco: Never Assessed Sex and Gender Information Value Date Recorded Sex Assigned at Not on file Legal Sex Male 5:20 AM SOCIAL SECURITY ASSESSOR Gender Identity Not on file Sexual Orientation Not on file documented as of this encounter Plan of Treatment Not on file documented as of this encounter Procedures Procedure Name Priority Date/Time Associated Diagnosis Comments POC GLUCOSE Routine 06/04/2005 6:01 AM SOCIAL SECURITY ASSESSOR PROTIME-INR Routine 06/04/2005 5:30 AM SOCIAL SECURITY ASSESSOR BASIC METABOLIC PANEL Routine 06/04/2005 5:30 AM SOCIAL SECURITY ASSESSOR POC GLUCOSE Routine 06/03/2005 8:35 PM SOCIAL SECURITY ASSESSOR POC GLUCOSE Routine 06/03/2005 4:32 PM SOCIAL SECURITY ASSESSOR POC GLUCOSE Routine 06/03/2005 11:39 AM SOCIAL SECURITY ASSESSOR POC GLUCOSE Routine 06/03/2005 5:32 AM SOCIAL SECURITY ASSESSOR CBC WITH DIFFERENTIAL Routine 06/03/2005 5:15 AM SOCIAL SECURITY ASSESSOR CBC WITH DIFFERENTIAL Routine 06/03/2005 5:15 AM SOCIAL SECURITY ASSESSOR PROTIME-INR Routine 06/03/2005 5:15 AM SOCIAL SECURITY ASSESSOR MAGNESIUM LEVEL Routine 06/03/2005 5:15 AM SOCIAL SECURITY ASSESSOR BASIC METABOLIC PANEL Routine 06/03/2005 5:15 AM SOCIAL SECURITY ASSESSOR POC GLUCOSE Routine 06/02/2005 8:54 PM SOCIAL SECURITY ASSESSOR POC GLUCOSE Routine 06/02/2005 4:36 PM SOCIAL SECURITY ASSESSOR POTASSIUM LEVEL Routine 06/02/2005 12:23 PM SOCIAL SECURITY ASSESSOR MAGNESIUM LEVEL Routine 06/02/2005 12:23 PM SOCIAL SECURITY ASSESSOR POC GLUCOSE Routine 06/02/2005 11:52 AM SOCIAL SECURITY ASSESSOR POC GLUCOSE Routine 06/02/2005 5:55 AM SOCIAL SECURITY ASSESSOR POC GLUCOSE Routine 06/01/2005 9:08 PM SOCIAL SECURITY ASSESSOR POTASSIUM LEVEL Routine 06/01/2005 8:00 PM SOCIAL SECURITY ASSESSOR MAGNESIUM LEVEL Routine 06/01/2005 8:00 PM SOCIAL SECURITY ASSESSOR POC GLUCOSE Routine 06/01/2005 4:17 PM SOCIAL SECURITY ASSESSOR POC GLUCOSE Routine 06/01/2005 11:56 AM SOCIAL SECURITY ASSESSOR PT AND APTT Routine 06/01/2005 4:45 AM SOCIAL SECURITY ASSESSOR CBC WITH DIFFERENTIAL Routine 06/01/2005 4:45 AM SOCIAL SECURITY ASSESSOR CBC WITH DIFFERENTIAL Routine 06/01/2005 4:45 AM SOCIAL SECURITY ASSESSOR COMPREHENSIVE METABOLIC PANEL Routine 06/01/2005 4:45 AM SOCIAL SECURITY ASSESSOR POC GLUCOSE Routine 05/31/2005 10:01 PM SOCIAL SECURITY ASSESSOR POC GLUCOSE Routine 05/31/2005 6:46 PM SOCIAL SECURITY ASSESSOR POC GLUCOSE Routine 05/31/2005 3:42 PM SOCIAL SECURITY ASSESSOR POC GLUCOSE Routine 05/31/2005 1:52 PM SOCIAL SECURITY ASSESSOR POTASSIUM LEVEL Routine 05/31/2005 1:49 PM SOCIAL SECURITY ASSESSOR MAGNESIUM LEVEL Routine 05/31/2005 1:49 PM SOCIAL SECURITY ASSESSOR POC GLUCOSE Routine 05/31/2005 6:00 AM SOCIAL SECURITY ASSESSOR POC GLUCOSE Routine 05/31/2005 5:02 AM SOCIAL SECURITY ASSESSOR CVR ONLY, CKMB/CK Routine 05/31/2005 4:1 9 AM SOCIAL SECURITY ASSESSOR PT AND APTT Routine 05/31/2005 4:19 AM SOCIAL SECURITY ASSESSOR CBC WITH DIFFERENTIAL Routine 05/31/2005 4:19 AM SOCIAL SECURITY ASSESSOR CBC WITH DIFFERENTIAL Routine 05/31/2005 4:19 AM SOCIAL SECURITY ASSESSOR COMPREHENSIVE METABOLIC PANEL Routine 05/31/2005 4:19 AM SOCIAL SECURITY ASSESSOR POC GLUCOSE Routine 05/31/2005 4:12 AM SOCIAL SECURITY ASSESSOR POC GLUCOSE Routine 05/31/2005 3:09 AM SOCIAL SECURITY ASSESSOR POC GLUCOSE Routine 05/31/2005 2:13 AM SOCIAL SECURITY ASSESSOR POC GLUCOSE Routine 05/31/2005 1:18 AM SOCIAL SECURITY ASSESSOR POC GLUCOSE Routine 05/30/2005 11:59 PM SOCIAL SECURITY ASSESSOR POC GLUCOSE Routine 05/30/2005 11:06 PM SOCIAL SECURITY ASSESSOR POC GLUCOSE Routine 05/30/2005 9:59 PM SOCIAL SECURITY ASSESSOR POC GLUCOSE Routine 05/30/2005 9:01 PM SOCIAL SECURITY ASSESSOR POTASSIUM LEVEL Routine 05/30/2005 8:15 PM SOCIAL SECURITY ASSESSOR MAGNESIUM LEVEL Routine 05/30/2005 8:15 PM SOCIAL SECURITY ASSESSOR POC GLUCOSE Routine 05/30/2005 8:08 PM SOCIAL SECURITY ASSESSOR CVR ONLY, CKMB/CK Routine 05/30/2005 7:3 0 PM SOCIAL SECURITY ASSESSOR POC GLUCOSE Routine 05/30/2005 6:56 PM SOCIAL SECURITY ASSESSOR POC GLUCOSE Routine 05/30/2005 5:34 PM SOCIAL SECURITY ASSESSOR POC GLUCOSE Routine 05/30/2005 4:52 PM SOCIAL SECURITY ASSESSOR POTASSIUM LEVEL Routine 05/30/2005 4:01 PM SOCIAL SECURITY ASSESSOR MAGNESIUM LEVEL Routine 05/30/2005 4:01 PM SOCIAL SECURITY ASSESSOR POC GLUCOSE Routine 05/30/2005 3:55 PM SOCIAL SECURITY ASSESSOR POC GLUCOSE Routine 05/30/2005 2:48 PM SOCIAL SECURITY ASSESSOR POC GLUCOSE Routine 05/30/2005 1:43 PM SOCIAL SECURITY ASSESSOR POC, BLOOD GASES Routine 05/30/2005 1:21 PM SOCIAL SECURITY ASSESSOR POC GLUCOSE Routine 05/30/2005 12:03 PM SOCIAL SECURITY ASSESSOR POC, BLOOD GASES Routine 05/30/2005 11:1 4 AM SOCIAL SECURITY ASSESSOR CVR ONLY, CKMB/CK Routine 05/30/2005 11: 02 AM SOCIAL SECURITY ASSESSOR PT AND APTT Routine 05/30/2005 11:02 AM SOCIAL SECURITY ASSESSOR CBC WITH DIFFERENTIAL Routine 05/30/2005 11:02 AM SOCIAL SECURITY ASSESSOR CBC WITH DIFFERENTIAL Routine 05/30/2005 11:02 AM SOCIAL SECURITY ASSESSOR MAGNESIUM LEVEL Routine 05/30/2005 11:02 AM SOCIAL SECURITY ASSESSOR BASIC METABOLIC PANEL Routine 05/30/2005 11:02 AM SOCIAL SECURITY ASSESSOR URINALYSIS WITH REFLEX CULTURE Routine 05/29/2005 10:00 AM SOCIAL SECURITY ASSESSOR URINALYSIS W/REFLEX MICROSCOPIC Routine 05/29/2005 10:00 AM SOCIAL SECURITY ASSESSOR CBC WITH DIFFERENTIAL Routine 05/28/2005 5:00 AM SOCIAL SECURITY ASSESSOR CBC WITH DIFFERENTIAL Routine 05/28/2005 5:00 AM SOCIAL SECURITY ASSESSOR PTT Routine 05/28/2005 4:45 AM SOCIAL SECURITY ASSESSOR PROTIME-INR Routine 05/28/2005 4:45 AM SOCIAL SECURITY ASSESSOR COMPREHENSIVE METABOLIC PANEL Routine 05/28/2005 4:45 AM SOCIAL SECURITY ASSESSOR TROPONIN (W/REFLEX CKMB/CK) Routine 05/28/2005 4:35 AM SOCIAL SECURITY ASSESSOR PTT Routine 05/27/2005 7:16 PM SOCIAL SECURITY ASSESSOR POC ACTIVATED CLOTTING TIME Routine 05/27/2005 11:32 AM SOCIAL SECURITY ASSESSOR POC ACTIVATED CLOTTING TIME Routine 05/27/2005 11:28 AM SOCIAL SECURITY ASSESSOR documented in this encounter Results * POC GLUCOSE (06/04/2005 6:01 AM SOCIAL SECURITY ASSESSOR) COMMENT, GLU POC Notified RN INTERFACE SYSTEM GLUCOSE POC 108 65 - 109 mg/dL INTERFACE SYSTEM 06/04/2005 6:01 AM SOCIAL SECURITY ASSESSOR Morgan Caldwell MD POINT OF CARE TESTING Fin al Result Performing Organization Address [facility] Phone Number INTERFACE SYSTEM Refer to clinic/hospital department * (ABNORMAL) BASIC METABOLIC PANEL (06/04/2005 5:30 AM SOCIAL SECURITY ASSESSOR) GLUCOSE 113(H) 65 - 109 mg/dL INTERFACE SYSTEM CREATININE 1.0 0.5 - 1.3 mg/dL INTERFACE SYSTEM CALCIUM 9.0 8.6 - 10.2 mg/dL INTERFACE SYSTEM BUN 19 6 - 20 mg/dL INTERFACE SYSTEM SODIUM 137 135 - 145 mmol/L INTERFACE SYSTEM POTASSIUM 4.8 3.5 - 4.9 mmol/L INTERFACE SYSTEM CHLORIDE 99 96 - 108 mmol/L INTERFACE SYSTEM CO2 30 22 - 30 mmol/L INTERFACE SYSTEM 06/04/2005 5:30 AM SOCIAL SECURITY ASSESSOR Pablo ARANA CHEMISTRY ORDERABLES Final Resul t Performing Organization Address [facility] Phone Number INTERFACE SYSTEM Refer to clinic/hospital department * (ABNORMAL) PROTIME-INR (06/04/2005 5:30 AM SOCIAL SECURITY ASSESSOR) PROTIME 35.8(H) 12.7 - 15.1 Seconds INTERFACE SYSTEM INR 3.5(H) 0.9 - 1.1 INTERFACE SYSTEM Comment: INR Therapeutic Range: Adult: 2.0 - 3.0 for pulmonary embolism or prophylaxis against venous thrombosis or systemic embolization. 2.0 - 3.0 for patients with tissue heart valves. 2.5 - 3.5 for patients with mechanical heart valves or post [place]. Pediatric (12 years and under): 1.5 - 3.0 Although the target range in children is not well established , INR values of 1.5 - 3.0 are recommended for most patients. Higher values have been used in children with prosthetic cardiac valves and hereditary clotting disorders. (<3 days) therapeutic ranges have not been established. 06/04/2005 5:30 AM SOCIAL SECURITY ASSESSOR us Pablo ARANA HEMATOLOGY ORDERABLES Final Resu lt Performing Organization Address [facility] de Phone Number INTERFACE SYSTEM Refer to clinic/hospital department * (ABNORMAL) POC GLUCOSE (06/03/2005 8:35 PM SOCIAL SECURITY ASSESSOR) GLUCOSE POC 127(H) 65 - 109 mg/dL INTERFACE SYSTEM 06/03/2005 8:35 PM SOCIAL SECURITY ASSESSOR Morgan Caldwell MD POINT OF CARE TESTING Fin al Result Performing Organization Address [facility] de Phone Number INTERFACE SYSTEM Refer to clinic/hospital department * (ABNORMAL) POC GLUCOSE (06/03/2005 4:32 PM SOCIAL SECURITY ASSESSOR) GLUCOSE POC 144(H) 65 - 109 mg/dL INTERFACE SYSTEM 06/03/2005 4:32 PM SOCIAL SECURITY ASSESSOR Morgan Caldwell MD POINT OF CARE TESTING Fin al Result Performing Organization Address [facility] Phone Number INTERFACE SYSTEM Refer to clinic/hospital department * (ABNORMAL) POC GLUCOSE (06/03/2005 11:39 AM SOCIAL SECURITY ASSESSOR) GLUCOSE POC 127(H) 65 - 109 mg/dL INTERFACE SYSTEM 06/03/2005 11:3 9 AM SOCIAL SECURITY ASSESSOR Morgan Caldwell MD POINT OF CARE TESTING Fin al Result Performing Organization Address [facility] Phone Number INTERFACE SYSTEM Refer to clinic/hospital department * (ABNORMAL) POC GLUCOSE (06/03/2005 5:32 AM SOCIAL SECURITY ASSESSOR) GLUCOSE POC 125(H) 65 - 109 mg/dL INTERFACE SYSTEM 06/03/2005 5:32 AM SOCIAL SECURITY ASSESSOR Morgan Caldwell MD POINT OF CARE TESTING Fin al Result Performing Organization Address [facility] de Phone Number INTERFACE SYSTEM Refer to clinic/hospital department * (ABNORMAL) CBC WITH DIFFERENTIAL (06/03/2005 5:15 AM SOCIAL SECURITY ASSESSOR) Pathologist [facility] NEUTROPHILS 61 45 - 70 % INTERFAC E SYSTEM LYMPHOCYTES 21 16 - 45 % INTERFAC E SYSTEM MONOCYTES 12 3 - 13 % INTERFACE SYSTEM EOSINOPHILS 6 0 - 7 % INTERFAC E SYSTEM BASOPHILS 1 0 - 2 % INTERFACE SYSTEM NEUTROPHIL ABSOLUTE 6.87 1.90 - 7.00 K/uL INTERFACE SYSTEM LYMPHOCYTE ABSOLUTE 2.34 0.70 - 4.50 K/uL INTERFACE SYSTEM MONOCYTE ABSOLUTE 1.38(H) 0.10 - 1.30 K/uL INTERFACE SYSTEM EOSINOPHIL ABSOLUTE 0.67 0.00 - 0.70 K/uL INTERFACE SYSTEM BASOPHILS ABSOLUTE 0.08 0.00 - 0.20 K/uL INTERFACE SYSTEM 06/03/2005 5:15 AM SOCIAL SECURITY ASSESSOR Morgan Caldwell MD HEMATOLOGY ORDERABLES Fin al Result Performing Organization Address [facility] de Phone Number INTERFACE SYSTEM Refer to clinic/hospital department * (ABNORMAL) CBC WITH DIFFERENTIAL (06/03/2005 5:15 AM SOCIAL SECURITY ASSESSOR) [facility] WBC 11.3(H) 4.0 - 9.8 K/uL INTERFACE SYSTEM RBC 3.73(L) 4.50 - 5.40 M/uL INTERFACE SYSTEM HEMOGLOBIN 10.5(L) 13.6 - 16.5 g/dL INTERFACE SYSTEM HEMATOCRIT 32.6(L) 40.0 - 48.0 % INTERFACE SYSTEM MCV 87.4 82.0 - 99.0 fL INTERFACE SYSTEM MCH 28.2 27.2 - 32.6 pg INTERFACE SYSTEM MCHC 32.2 31.5 - 35.5 % INTERFACE SYSTEM RDW 14.1 11.5 - 14.5 % INTERFACE SYSTEM RDW-STDEV 44.8 37.1 - 48.7 fL INTERFACE SYSTEM PLATELETS 401(H) 140 - 350 K/uL INTERFACE SYSTEM MPV 9.6 9.3 - 12.4 fL INTERFACE SYSTEM 06/03/2005 5:15 AM SOCIAL SECURITY ASSESSOR Morgan Caldwell MD HEMATOLOGY ORDERABLES Fin al Result Performing Organization Address [facility]/ZIP Co de Phone Number INTERFACE SYSTEM Refer to clinic/hospital department * MAGNESIUM LEVEL (06/03/2005 5:15 AM SOCIAL SECURITY ASSESSOR) MAGNESIUM 2.2 1.5 - 2.5 mg/dL INTERFACE SYSTEM 06/03/2005 5:15 AM SOCIAL SECURITY ASSESSOR Pablo ARANA CHEMISTRY ORDERABLES Final Resul t Performing Organization Address [facility] Phone Number INTERFACE SYSTEM Refer to clinic/hospital department * (ABNORMAL) PROTIME-INR (06/03/2005 5:15 AM SOCIAL SECURITY ASSESSOR) PROTIME 21.0(H) 12.7 - 15.1 Seconds INTERFACE SYSTEM INR 1.7(H) 0.9 - 1.1 INTERFACE SYSTEM Comment: INR Therapeutic Range: Adult: 2.0 - 3.0 for pulmonary embolism or prophylaxis against venous thrombosis or systemic embolization. 2.0 - 3.0 for patients with tissue heart valves. 2.5 - 3.5 for patients with mechanical heart valves or post [place]. Pediatric (12 years and under): 1.5 - 3.0 Although the target range in children is not well established , INR values of 1.5 - 3.0 are recommended for most patients. Higher values have been used in children with prosthetic cardiac valves and hereditary clotting disorders. (<3 days) therapeutic ranges have not been established. 06/03/2005 5:15 AM SOCIAL SECURITY ASSESSOR us Pablo ARANA HEMATOLOGY ORDERABLES Final Resu lt Performing Organization Address [facility] Phone Number INTERFACE SYSTEM Refer to clinic/hospital department * (ABNORMAL) BASIC METABOLIC PANEL (06/03/2005 5:15 AM SOCIAL SECURITY ASSESSOR) GLUCOSE 113(H) 65 - 109 mg/dL INTERFACE SYSTEM CREATININE 0.9 0.5 - 1.3 mg/dL INTERFACE SYSTEM Comment:Significant change f rom prior result, correlate clinically and redraw if necessary. CALCIUM 8.5(L) 8.6 - 10.2 mg/dL INTERFACE SYSTEM BUN 18 6 - 20 mg/dL INTERFACE SYSTEM SODIUM 136 135 - 145 mmol/L INTERFACE SYSTEM POTASSIUM 4.3 3.5 - 4.9 mmol/L INTERFACE SYSTEM CHLORIDE 99 96 - 108 mmol/L INTERFACE SYSTEM CO2 28 22 - 30 mmol/L INTERFACE SYSTEM 06/03/2005 5:15 AM SOCIAL SECURITY ASSESSOR Morgan Caldwell MD CHEMISTRY ORDERABLES Linda l Result Performing Organization Address [facility] Phone Number INTERFACE SYSTEM Refer to clinic/hospital department * (ABNORMAL) POC GLUCOSE (06/02/2005 8:54 PM SOCIAL SECURITY ASSESSOR) GLUCOSE POC 139(H) 65 - 109 mg/dL INTERFACE SYSTEM 06/02/2005 8:54 PM SOCIAL SECURITY ASSESSOR Morgan Caldwell MD POINT OF CARE TESTING Fin al Result Performing Organization Address [facility] Phone Number INTERFACE SYSTEM Refer to clinic/hospital department * (ABNORMAL) POC GLUCOSE (06/02/2005 4:36 PM SOCIAL SECURITY ASSESSOR) GLUCOSE POC 121(H) 65 - 109 mg/dL INTERFACE SYSTEM 06/02/2005 4:36 PM SOCIAL SECURITY ASSESSOR Morgan Caldwell MD POINT OF CARE TESTING Fin al Result Performing Organization Address [facility] Phone Number INTERFACE SYSTEM Refer to clinic/hospital department * POTASSIUM LEVEL (06/02/2005 12:23 PM SOCIAL SECURITY ASSESSOR) POTASSIUM 4.2 3.5 - 4.9 mmol/L INTERFACE SYSTEM 06/02/2005 12:2 3 PM SOCIAL SECURITY ASSESSOR Morgan Caldwell MD CHEMISTRY ORDERABLES Linda l Result Performing Organization Address [facility] Phone Number INTERFACE SYSTEM Refer to clinic/hospital department * MAGNESIUM LEVEL (06/02/2005 12:23 PM SOCIAL SECURITY ASSESSOR) MAGNESIUM 2.2 1.5 - 2.5 mg/dL INTERFACE SYSTEM 06/02/2005 12:2 3 PM SOCIAL SECURITY ASSESSOR Morgan Caldwell MD CHEMISTRY ORDERABLES Linda l Result Performing Organization Address [facility] Phone Number INTERFACE SYSTEM Refer to clinic/hospital department * (ABNORMAL) POC GLUCOSE (06/02/2005 11:52 AM SOCIAL SECURITY ASSESSOR) GLUCOSE POC 126(H) 65 - 109 mg/dL INTERFACE SYSTEM 06/02/2005 11:5 2 AM SOCIAL SECURITY ASSESSOR Morgan Caldwell MD POINT OF CARE TESTING Fin al Result Performing Organization Address [facility] Phone Number INTERFACE SYSTEM Refer to clinic/hospital department * (ABNORMAL) POC GLUCOSE (06/02/2005 5:55 AM SOCIAL SECURITY ASSESSOR) GLUCOSE POC 128(H) 65 - 109 mg/dL INTERFACE SYSTEM 06/02/2005 5:55 AM SOCIAL SECURITY ASSESSOR Morgan Caldwell MD POINT OF CARE TESTING Fin al Result Performing Organization Address [facility] Phone Number INTERFACE SYSTEM Refer to clinic/hospital department * (ABNORMAL) POC GLUCOSE (06/01/2005 9:08 PM SOCIAL SECURITY ASSESSOR) GLUCOSE POC 135(H) 65 - 109 mg/dL INTERFACE SYSTEM 06/01/2005 9:08 PM SOCIAL SECURITY ASSESSOR Morgan Caldwell MD POINT OF CARE TESTING Fin al Result Performing Organization Address [facility] Phone Number INTERFACE SYSTEM Refer to clinic/hospital department * POTASSIUM LEVEL (06/01/2005 8:00 PM SOCIAL SECURITY ASSESSOR) POTASSIUM 4.6 3.5 - 4.9 mmol/L INTERFACE SYSTEM 06/01/2005 8:00 PM SOCIAL SECURITY ASSESSOR John Hurd MD CHEMISTRY ORDERABLES Final Re sult Performing Organization Address [facility] Phone Number INTERFACE SYSTEM Refer to clinic/hospital department * MAGNESIUM LEVEL (06/01/2005 8:00 PM SOCIAL SECURITY ASSESSOR) MAGNESIUM 2.3 1.5 - 2.5 mg/dL INTERFACE SYSTEM 06/01/2005 8:00 PM SOCIAL SECURITY ASSESSOR John Hurd MD CHEMISTRY ORDERABLES Final Re sult Performing Organization Address [facility] de Phone Number INTERFACE SYSTEM Refer to clinic/hospital department * (ABNORMAL) POC GLUCOSE (06/01/2005 4:17 PM SOCIAL SECURITY ASSESSOR) GLUCOSE POC 130(H) 65 - 109 mg/dL INTERFACE SYSTEM 06/01/2005 4:17 PM SOCIAL SECURITY ASSESSOR Morgan Caldwell MD POINT OF CARE TESTING Fin al Result Performing Organization Address [facility] Phone Number INTERFACE SYSTEM Refer to clinic/hospital department * (ABNORMAL) POC GLUCOSE (06/01/2005 11:56 AM SOCIAL SECURITY ASSESSOR) GLUCOSE POC 140(H) 65 - 109 mg/dL INTERFACE SYSTEM 06/01/2005 11:5 6 AM SOCIAL SECURITY ASSESSOR Morgan Caldwell MD POINT OF CARE TESTING Fin al Result Performing Organization Address [facility] Phone Number INTERFACE SYSTEM Refer to clinic/hospital department * (ABNORMAL) CBC WITH DIFFERENTIAL (06/01/2005 4:45 AM SOCIAL SECURITY ASSESSOR) NEUTROPHILS 64 45 - 70 % INTERFAC E SYSTEM LYMPHOCYTES 20 16 - 45 % INTERFAC E SYSTEM MONOCYTES 14(H) 3 - 13 % INTERFACE SYSTEM EOSINOPHILS 3 0 - 7 % INTERFAC E SYSTEM BASOPHILS 1 0 - 2 % INTERFACE SYSTEM NEUTROPHIL ABSOLUTE 8.23(H) 1.90 - 7.00 K/uL INTERFACE SYSTEM LYMPHOCYTE ABSOLUTE 2.55 0.70 - 4.50 K/uL INTERFACE SYSTEM MONOCYTE ABSOLUTE 1.77(H) 0.10 - 1.30 K/uL INTERFACE SYSTEM EOSINOPHIL ABSOLUTE 0.32 0.00 - 0.70 K/uL INTERFACE SYSTEM BASOPHILS ABSOLUTE 0.06 0.00 - 0.20 K/uL INTERFACE SYSTEM 06/01/2005 4:45 AM SOCIAL SECURITY ASSESSOR Morgan Caldwell MD HEMATOLOGY ORDERABLES [facility] al Result Performing Organization Address [facility] de Phone Number INTERFACE SYSTEM Refer to clinic/hospital department * (ABNORMAL) CBC WITH DIFFERENTIAL (06/01/2005 4:45 AM SOCIAL SECURITY ASSESSOR) WBC 12.9(H) 4.0 - 9.8 K/uL INTERFACE SYSTEM RBC 3.45(L) 4.50 - 5.40 M/uL INTERFACE SYSTEM HEMOGLOBIN 9.6(L) 13.6 - 16.5 g/dL INTERFACE SYSTEM HEMATOCRIT 30.8(L) 40.0 - 48.0 % INTERFACE SYSTEM MCV 89.3 82.0 - 99.0 fL INTERFACE SYSTEM MCH 27.8 27.2 - 32.6 pg INTERFACE SYSTEM MCHC 31.2(L) 31.5 - 35.5 % INTERFACE SYSTEM RDW 14.3 11.5 - 14.5 % INTERFACE SYSTEM RDW-STDEV 46.9 37.1 - 48.7 fL INTERFACE SYSTEM PLATELETS 274 140 - 350 K/uL INTERFACE SYSTEM MPV 9.7 9.3 - 12.4 fL INTERFACE SYSTEM 06/01/2005 4:45 AM SOCIAL SECURITY ASSESSOR Morgan Caldwell MD HEMATOLOGY ORDERABLES [facility] kyle Result Performing Organization Address [facility] Phone Number INTERFACE SYSTEM Refer to clinic/hospital department * (ABNORMAL) PT AND APTT (06/01/2005 4:45 AM SOCIAL SECURITY ASSESSOR) PROTIME 16.2(H) 12.7 - 15.1 Seconds INTERFACE SYSTEM INR 1.2(H) 0.9 - 1.1 INTERFACE SYSTEM Comment: INR Therapeutic Range: Adult: 2.0 - 3.0 for pulmonary embolism or prophylaxis against venous thrombosis or systemic embolization. 2.0 - 3.0 for patients with tissue heart valves. 2.5 - 3.5 for patients with mechanical heart valves or post [place]. Pediatric (12 years and under): 1.5 - 3.0 Although the target range in children is not well established , INR values of 1.5 - 3.0 are recommended for most patients. Higher values have been used in children with prosthetic cardiac valves and hereditary clotting disorders. (<3 days) therapeutic ranges have not been established. PTT 31.2 24.4 - 36.4 Seconds INTERFACE SYSTEM Comment: PTT Therapeutic Range: Heparin Level PTT (seconds) <0.10 units/mL <53 0.10 - 0.30 units/mL 53 - 67 0.30 - 0.70 units/mL* 67 - 95* 0.70 - 1.00 units/mL 95 - 116 *corresponds to therapeutic range for unfractionated heparin 06/01/2005 4:45 AM SOCIAL SECURITY ASSESSOR John Hurd MD HEMATOLOGY ORDERABLES Final R esult Performing Organization Address [facility] Phone Number INTERFACE SYSTEM Refer to clinic/hospital department * (ABNORMAL) COMPREHENSIVE METABOLIC PANEL (06/01/2005 4:45 AM SOCIAL SECURITY ASSESSOR) GLUCOSE 119(H) 65 - 109 mg/dL INTERFACE SYSTEM CREATININE 1.4(H) 0.5 - 1.3 mg/dL INTERFACE SYSTEM Comment:Significant change f rom prior result, correlate clinically and redraw if necessary. CALCIUM 7.9(L) 8.6 - 10.2 mg/dL INTERFACE SYSTEM AST 28 12 - 38 U/L INTERFACE SYSTEM ALKALINE PHOSPHATASE 59 40 - 129 U/L INTERFACE SYSTEM BILIRUBIN TOTAL 0.7 0.2 - 1.0 mg/dL INTERFACE SYSTEM ALBUMIN 3.7 3.4 - 4.8 g/dL INTERFACE SYSTEM TOTAL PROTEIN 6.3 6.3 - 8.6 g/dL INTERFACE SYSTEM ALT 22 0 - 41 U/L INTERFACE SYSTEM BUN 22(H) 6 - 20 mg/dL INTERFACE SYSTEM SODIUM 135 135 - 145 mmol/L INTERFACE SYSTEM POTASSIUM 4.6 3.5 - 4.9 mmol/L INTERFACE SYSTEM CHLORIDE 101 96 - 108 mmol/L INTERFACE SYSTEM CO2 24 22 - 30 mmol/L INTERFACE SYSTEM 06/01/2005 4:45 AM SOCIAL SECURITY ASSESSOR John Hurd MD CHEMISTRY ORDERABLES Final Re sult Performing Organization Address [facility] de Phone Number INTERFACE SYSTEM Refer to clinic/hospital department * (ABNORMAL) POC GLUCOSE (05/31/2005 10:01 PM SOCIAL SECURITY ASSESSOR) GLUCOSE POC 164(H) 65 - 109 mg/dL INTERFACE SYSTEM 05/31/2005 10:0 1 PM SOCIAL SECURITY ASSESSOR Morgan Caldwell MD POINT OF CARE TESTING Fin al Result Performing Organization Address [facility] Phone Number INTERFACE SYSTEM Refer to clinic/hospital department * (ABNORMAL) POC GLUCOSE (05/31/2005 6:46 PM SOCIAL SECURITY ASSESSOR) GLUCOSE POC 130(H) 65 - 109 mg/dL INTERFACE SYSTEM 05/31/2005 6:46 PM SOCIAL SECURITY ASSESSOR Morgan Caldwell MD POINT OF CARE TESTING Fin al Result Performing Organization Address [facility] Phone Number INTERFACE SYSTEM Refer to clinic/hospital department * (ABNORMAL) POC GLUCOSE (05/31/2005 3:42 PM SOCIAL SECURITY ASSESSOR) GLUCOSE POC 160(H) 65 - 109 mg/dL INTERFACE SYSTEM 05/31/2005 3:42 PM SOCIAL SECURITY ASSESSOR Morgan Caldwell MD POINT OF CARE TESTING Fin al Result Performing Organization Address [facility] Phone Number INTERFACE SYSTEM Refer to clinic/hospital department * (ABNORMAL) POC GLUCOSE (05/31/2005 1:52 PM SOCIAL SECURITY ASSESSOR) GLUCOSE POC 144(H) 65 - 109 mg/dL INTERFACE SYSTEM 05/31/2005 1:52 PM SOCIAL SECURITY ASSESSOR Morgan Caldwell MD POINT OF CARE TESTING Fin al Result Performing Organization Address [facility] Phone Number INTERFACE SYSTEM Refer to clinic/hospital department * POTASSIUM LEVEL (05/31/2005 1:49 PM SOCIAL SECURITY ASSESSOR) POTASSIUM 4.6 3.5 - 4.9 mmol/L INTERFACE SYSTEM 05/31/2005 1:49 PM SOCIAL SECURITY ASSESSOR Pablo ARANA CHEMISTRY ORDERABLES Final Resul t Performing Organization Address [facility] Phone Number INTERFACE SYSTEM Refer to clinic/hospital department * MAGNESIUM LEVEL (05/31/2005 1:49 PM SOCIAL SECURITY ASSESSOR) MAGNESIUM 2.0 1.5 - 2.5 mg/dL INTERFACE SYSTEM 05/31/2005 1:49 PM SOCIAL SECURITY ASSESSOR Pablo ARANA CHEMISTRY ORDERABLES Final Resul t Performing Organization Address [facility] Phone Number INTERFACE SYSTEM Refer to clinic/hospital department * (ABNORMAL) POC GLUCOSE (05/31/2005 6:00 AM SOCIAL SECURITY ASSESSOR) GLUCOSE POC 114(H) 65 - 109 mg/dL INTERFACE SYSTEM 05/31/2005 6:00 AM SOCIAL SECURITY ASSESSOR Morgan Caldwell MD POINT OF CARE TESTING Fin al Result Performing Organization Address [facility] Phone Number INTERFACE SYSTEM Refer to clinic/hospital department * (ABNORMAL) POC GLUCOSE (05/31/2005 5:02 AM SOCIAL SECURITY ASSESSOR) GLUCOSE POC 111(H) 65 - 109 mg/dL INTERFACE SYSTEM 05/31/2005 5:02 AM SOCIAL SECURITY ASSESSOR Morgan Caldwell MD POINT OF CARE TESTING Fin al Result Performing Organization Address [facility] Phone Number INTERFACE SYSTEM Refer to clinic/hospital department * (ABNORMAL) CVR ONLY, CKMB/CK (05/31/2005 4:19 AM SOCIAL SECURITY ASSESSOR) CKMB 6.9(AA) <=6.7 ng/mL INTERFACE SYSTEM Comment:Persistent abnormal result CKMB INTERP See Below INTERFAC E SYSTEM Comment:Elevated CKMB,Consis tent with Myocardial Injury CK 258(H) 10 - 170 U/L INTERFACE SYSTEM CARDIAC RELATIVE INDEX 2.7 <=4.0 INTERFACE SYSTEM 05/31/2005 4:19 AM SOCIAL SECURITY ASSESSOR John Hurd MD CHEMISTRY ORDERABLES Final Re sult INTERFACE SYSTEM Refer to clinic/hospital department * (ABNORMAL) CBC WITH DIFFERENTIAL (05/31/2005 4:19 AM SOCIAL SECURITY ASSESSOR) NEUTROPHILS 75(H) 45 - 70 % INTERFAC E SYSTEM LYMPHOCYTES 13(L) 16 - 45 % INTERFAC E SYSTEM MONOCYTES 12 3 - 13 % INTERFACE SYSTEM EOSINOPHILS 0 0 - 7 % INTERFAC E SYSTEM BASOPHILS 0 0 - 2 % INTERFACE SYSTEM NEUTROPHIL ABSOLUTE 9.22(H) 1.90 - 7.00 K/uL INTERFACE SYSTEM LYMPHOCYTE ABSOLUTE 1.64 0.70 - 4.50 K/uL INTERFACE SYSTEM MONOCYTE ABSOLUTE 1.42(H) 0.10 - 1.30 K/uL INTERFACE SYSTEM EOSINOPHIL ABSOLUTE 0.05 0.00 - 0.70 K/uL INTERFACE SYSTEM BASOPHILS ABSOLUTE 0.02 0.00 - 0.20 K/uL INTERFACE SYSTEM 05/31/2005 4:19 AM SOCIAL SECURITY ASSESSOR John Hurd MD HEMATOLOGY ORDERABLES Final R esult Performing Organization Address [facility] Co de Phone Number INTERFACE SYSTEM Refer to clinic/hospital department * (ABNORMAL) CBC WITH DIFFERENTIAL (05/31/2005 4:19 AM SOCIAL SECURITY ASSESSOR) WBC 12.4(H) 4.0 - 9.8 K/uL INTERFACE SYSTEM RBC 4.01(L) 4.50 - 5.40 M/uL INTERFACE SYSTEM HEMOGLOBIN 11.2(L) 13.6 - 16.5 g/dL INTERFACE SYSTEM HEMATOCRIT 34.8(L) 40.0 - 48.0 % INTERFACE SYSTEM MCV 86.8 82.0 - 99.0 fL INTERFACE SYSTEM MCH 27.9 27.2 - 32.6 pg INTERFACE SYSTEM MCHC 32.2 31.5 - 35.5 % INTERFACE SYSTEM RDW 13.9 11.5 - 14.5 % INTERFACE SYSTEM RDW-STDEV 44.1 37.1 - 48.7 fL INTERFACE SYSTEM PLATELETS 263 140 - 350 K/uL INTERFACE SYSTEM MPV 9.3 9.3 - 12.4 fL INTERFACE SYSTEM 05/31/2005 4:19 AM SOCIAL SECURITY ASSESSOR John Hurd MD HEMATOLOGY ORDERABLES Final R [facility] Performing Organization Address [facility] Phone Number INTERFACE SYSTEM Refer to clinic/hospital department * (ABNORMAL) PT AND APTT (05/31/2005 4:19 AM SOCIAL SECURITY ASSESSOR) PROTIME 16.5(H) 12.7 - 15.1 Seconds INTERFACE SYSTEM INR 1.2(H) 0.9 - 1.1 INTERFACE SYSTEM Comment: INR Therapeutic Range: Adult: 2.0 - 3.0 for pulmonary embolism or prophylaxis against venous thrombosis or systemic embolization. 2.0 - 3.0 for patients with tissue heart valves. 2.5 - 3.5 for patients with mechanical heart valves or post [place]. Pediatric (12 years and under): 1.5 - 3.0 Although the target range in children is not well established , INR values of 1.5 - 3.0 are recommended for most patients. Higher values have been used in children with prosthetic cardiac valves and hereditary clotting disorders. (<3 days) therapeutic ranges have not been established. PTT 30.3 24.4 - 36.4 Seconds INTERFACE SYSTEM Comment: PTT Therapeutic Range: Heparin Level PTT (seconds) <0.10 units/mL <53 0.10 - 0.30 units/mL 53 - 67 0.30 - 0.70 units/mL* 67 - 95* 0.70 - 1.00 units/mL 95 - 116 *corresponds to therapeutic range for unfractionated heparin 05/31/2005 4:19 AM SOCIAL SECURITY ASSESSOR John Hurd MD HEMATOLOGY ORDERABLES Final R esult Performing Organization Address [facility] Co de Phone Number INTERFACE SYSTEM Refer to clinic/hospital department * (ABNORMAL) COMPREHENSIVE METABOLIC PANEL (05/31/2005 4:19 AM SOCIAL SECURITY ASSESSOR) GLUCOSE 116(H) 65 - 109 mg/dL INTERFACE SYSTEM CREATININE 0.7 0.5 - 1.3 mg/dL INTERFACE SYSTEM CALCIUM 7.9(L) 8.6 - 10.2 mg/dL INTERFACE SYSTEM AST 22 12 - 38 U/L INTERFACE SYSTEM ALKALINE PHOSPHATASE 35(L) 40 - 129 U/L INTERFACE SYSTEM BILIRUBIN TOTAL 0.6 0.2 - 1.0 mg/dL INTERFACE SYSTEM ALBUMIN 3.1(L) 3.4 - 4.8 g/dL INTERFACE SYSTEM TOTAL PROTEIN 5.6(L) 6.3 - 8.6 g/dL INTERFACE SYSTEM ALT 17 0 - 41 U/L INTERFACE SYSTEM BUN 14 6 - 20 mg/dL INTERFACE SYSTEM SODIUM 134(L) 135 - 145 mmol/L INTERFACE SYSTEM POTASSIUM 4.1 3.5 - 4.9 mmol/L INTERFACE SYSTEM CHLORIDE 104 96 - 108 mmol/L INTERFACE SYSTEM CO2 27 22 - 30 mmol/L INTERFACE SYSTEM 05/31/2005 4:19 AM SOCIAL SECURITY ASSESSOR us John Hurd MD CHEMISTRY ORDERABLES Final Re sult Performing Organization Address [facility] Phone Number INTERFACE SYSTEM Refer to clinic/hospital department * (ABNORMAL) POC GLUCOSE (05/31/2005 4:12 AM SOCIAL SECURITY ASSESSOR) GLUCOSE POC 115(H) 65 - 109 mg/dL INTERFACE SYSTEM 05/31/2005 4:12 AM SOCIAL SECURITY ASSESSOR Morgan Caldwell MD POINT OF CARE TESTING Fin al Result Performing Organization Address [facility] Phone Number INTERFACE SYSTEM Refer to clinic/hospital department * (ABNORMAL) POC GLUCOSE (05/31/2005 3:09 AM SOCIAL SECURITY ASSESSOR) GLUCOSE POC 130(H) 65 - 109 mg/dL INTERFACE SYSTEM 05/31/2005 3:09 AM SOCIAL SECURITY ASSESSOR Morgan Caldwell MD POINT OF CARE TESTING Fin al Result Performing Organization Address [facility] Phone Number INTERFACE SYSTEM Refer to clinic/hospital department * (ABNORMAL) POC GLUCOSE (05/31/2005 2:13 AM SOCIAL SECURITY ASSESSOR) GLUCOSE POC 145(H) 65 - 109 mg/dL INTERFACE SYSTEM 05/31/2005 2:13 AM SOCIAL SECURITY ASSESSOR us Morgan Caldwell MD POINT OF CARE TESTING Fin al Result Performing Organization Address [facility] Co de Phone Number INTERFACE SYSTEM Refer to clinic/hospital department * (ABNORMAL) POC GLUCOSE (05/31/2005 1:18 AM SOCIAL SECURITY ASSESSOR) GLUCOSE POC 167(H) 65 - 109 mg/dL INTERFACE SYSTEM 05/31/2005 1:18 AM SOCIAL SECURITY ASSESSOR us Morgan Caldwell MD POINT OF CARE TESTING Fin al Result Performing Organization Address [facility] Co de Phone Number INTERFACE SYSTEM Refer to clinic/hospital department * (ABNORMAL) POC GLUCOSE (05/30/2005 11:59 PM SOCIAL SECURITY ASSESSOR) GLUCOSE POC 158(H) 65 - 109 mg/dL INTERFACE SYSTEM 05/30/2005 11:5 9 PM SOCIAL SECURITY ASSESSOR us Morgan Caldwell MD POINT OF CARE TESTING Fin al Result Performing Organization Address [facility] Co de Phone Number INTERFACE SYSTEM Refer to clinic/hospital department * (ABNORMAL) POC GLUCOSE (05/30/2005 11:06 PM SOCIAL SECURITY ASSESSOR) GLUCOSE POC 158(H) 65 - 109 mg/dL INTERFACE SYSTEM 05/30/2005 11:0 6 PM SOCIAL SECURITY ASSESSOR Morgan Caldwell MD POINT OF CARE TESTING Fin al Result Performing Organization Address [facility] Co de Phone Number INTERFACE SYSTEM Refer to clinic/hospital department * (ABNORMAL) POC GLUCOSE (05/30/2005 9:59 PM SOCIAL SECURITY ASSESSOR) GLUCOSE POC 153(H) 65 - 109 mg/dL INTERFACE SYSTEM 05/30/2005 9:59 PM SOCIAL SECURITY ASSESSOR Morgan Caldwell MD POINT OF CARE TESTING Fin al Result Performing Organization Address [facility] Co de Phone Number INTERFACE SYSTEM Refer to clinic/hospital department * (ABNORMAL) POC GLUCOSE (05/30/2005 9:01 PM SOCIAL SECURITY ASSESSOR) GLUCOSE POC 128(H) 65 - 109 mg/dL INTERFACE SYSTEM 05/30/2005 9:01 PM SOCIAL SECURITY ASSESSOR Morgan Cadlwell MD POINT OF CARE TESTING Fin al Result Performing Organization Address [facility] Phone Number INTERFACE SYSTEM Refer to clinic/hospital department * MAGNESIUM LEVEL (05/30/2005 8:15 PM SOCIAL SECURITY ASSESSOR) MAGNESIUM 2.2 1.5 - 2.5 mg/dL INTERFACE SYSTEM 05/30/2005 8:15 PM SOCIAL SECURITY ASSESSOR John Hurd MD CHEMISTRY ORDERABLES Final Re sult Performing Organization Address [facility] Phone Number INTERFACE SYSTEM Refer to clinic/hospital department * POTASSIUM LEVEL (05/30/2005 8:15 PM SOCIAL SECURITY ASSESSOR) POTASSIUM 4.4 3.5 - 4.9 mmol/L INTERFACE SYSTEM 05/30/2005 8:15 PM SOCIAL SECURITY ASSESSOR John Hurd MD CHEMISTRY ORDERABLES Final Re sult Performing Organization Address [facility] Phone Number INTERFACE SYSTEM Refer to clinic/hospital department * (ABNORMAL) POC GLUCOSE (05/30/2005 8:08 PM SOCIAL SECURITY ASSESSOR) GLUCOSE POC 128(H) 65 - 109 mg/dL INTERFACE SYSTEM 05/30/2005 8:08 PM SOCIAL SECURITY ASSESSOR us Morgan Caldwell MD POINT OF CARE TESTING Fin al Result Performing Organization Address [facility] de Phone Number INTERFACE SYSTEM Refer to clinic/hospital department * (ABNORMAL) CVR ONLY, CKMB/CK (05/30/2005 7:30 PM SOCIAL SECURITY ASSESSOR) CKMB 12.2(AA) <=6.7 ng/mL INTERFACE SYSTEM Comment:Persistent abnormal result CKMB INTERP See Below INTERFAC E SYSTEM Comment:Elevated CKMB,Consis tent with Myocardial Injury CK 217(H) 10 - 170 U/L INTERFACE SYSTEM CARDIAC RELATIVE INDEX 5.6(H) <=4.0 INTERFACE SYSTEM 05/30/2005 7:30 PM SOCIAL SECURITY ASSESSOR John Hurd MD CHEMISTRY ORDERABLES Final Re sult Performing Organization Address [facility] Phone Number INTERFACE SYSTEM Refer to clinic/hospital department * (ABNORMAL) POC GLUCOSE (05/30/2005 6:56 PM SOCIAL SECURITY ASSESSOR) GLUCOSE POC 142(H) 65 - 109 mg/dL INTERFACE SYSTEM 05/30/2005 6:56 PM SOCIAL SECURITY ASSESSOR Morgan Caldwell MD POINT OF CARE TESTING Fin al Result Performing Organization Address [facility] Phone Number INTERFACE SYSTEM Refer to clinic/hospital department * (ABNORMAL) POC GLUCOSE (05/30/2005 5:34 PM SOCIAL SECURITY ASSESSOR) GLUCOSE POC 113(H) 65 - 109 mg/dL INTERFACE SYSTEM 05/30/2005 5:34 PM SOCIAL SECURITY ASSESSOR Morgan Caldwell MD POINT OF CARE TESTING Fin al Result Performing Organization Address [facility] Phone Number INTERFACE SYSTEM Refer to clinic/hospital department * POC GLUCOSE (05/30/2005 4:52 PM SOCIAL SECURITY ASSESSOR) GLUCOSE POC 91 65 - 109 mg/dL INTERFACE SYSTEM 05/30/2005 4:52 PM SOCIAL SECURITY ASSESSOR Morgan Caldwell MD POINT OF CARE TESTING Fin al Result Performing Organization Address [facility] de Phone Number INTERFACE SYSTEM Refer to clinic/hospital department * MAGNESIUM LEVEL (05/30/2005 4:01 PM SOCIAL SECURITY ASSESSOR) MAGNESIUM 2.1 1.5 - 2.5 mg/dL INTERFACE SYSTEM 05/30/2005 4:01 PM SOCIAL SECURITY ASSESSOR John Hurd MD CHEMISTRY ORDERABLES Final Re sult Performing Organization Address [facility] Phone Number INTERFACE SYSTEM Refer to clinic/hospital department * POTASSIUM LEVEL (05/30/2005 4:01 PM SOCIAL SECURITY ASSESSOR) POTASSIUM 4.2 3.5 - 4.9 mmol/L INTERFACE SYSTEM 05/30/2005 4:01 PM SOCIAL SECURITY ASSESSOR John Hurd MD CHEMISTRY ORDERABLES Final Re sult Performing Organization Address [facility] Phone Number INTERFACE SYSTEM Refer to clinic/hospital department * (ABNORMAL) POC GLUCOSE (05/30/2005 3:55 PM SOCIAL SECURITY ASSESSOR) GLUCOSE POC 129(H) 65 - 109 mg/dL INTERFACE SYSTEM 05/30/2005 3:55 PM SOCIAL SECURITY ASSESSOR Morgan Caldwell MD POINT OF CARE TESTING Fin al Result Performing Organization Address [facility] Phone Number INTERFACE SYSTEM Refer to clinic/hospital department * (ABNORMAL) POC GLUCOSE (05/30/2005 2:48 PM SOCIAL SECURITY ASSESSOR) GLUCOSE POC 142(H) 65 - 109 mg/dL INTERFACE SYSTEM 05/30/2005 2:48 PM SOCIAL SECURITY ASSESSOR Morgan Caldwell MD POINT OF CARE TESTING Fin al Result Performing Organization Address [facility] de Phone Number INTERFACE SYSTEM Refer to clinic/hospital department * (ABNORMAL) POC GLUCOSE (05/30/2005 1:43 PM SOCIAL SECURITY ASSESSOR) GLUCOSE POC 162(H) 65 - 109 mg/dL INTERFACE SYSTEM 05/30/2005 1:43 PM SOCIAL SECURITY ASSESSOR Morgan Caldwell MD POINT OF CARE TESTING Fin al Result Performing Organization Address [facility] de Phone Number INTERFACE SYSTEM Refer to clinic/hospital department * (ABNORMAL) POC RT, BLOOD GASES (05/30/2005 1:21 PM SOCIAL SECURITY ASSESSOR) PH ARTERIAL 7.37 7.35 - 7.45 INTERFACE SYSTEM PCO2 ARTERIAL 39 35 - 48 mm Hg INTERFACE SYSTEM PO2 ARTERIAL 84 83 - 108 mm Hg INTERFACE SYSTEM O2 SAT EST ABG POC 96 95 - 99 % INTERFACE SYSTEM PATIENT'S TEMPERATURE 37.0 Degree C INTERFACE SYSTEM BASE EXCESS ABG -2.5(L) -2.0 - 3.0 mmol/L INTERFACE SYSTEM HCO3 ARTERIAL 22 22 - 26 mmol/L INTERFACE SYSTEM SODIUM POC 135 135 - 145 mmol/L INTERFACE SYSTEM POTASSIUM POC 4.3 3.5 - 4.9 mmol/L INTERFACE SYSTEM CALICUM IONIZED, WHOLE BLOOD 4.33(L) 4.76 - 5.16 mg/dL INTERFACE SYSTEM HEMATOCRIT POC 37.0(L) 40.0 - 48.0 % INTERFACE SYSTEM FIO2 0 INTERFACE SYSTEM OXYGEN MODE IMV INTERFAC E SYSTEM PEEP POC 5 INTERFACE SYSTEM COMMENT, GASES POC RN AWARE INTERFACE SYSTEM 05/30/2005 1:21 PM SOCIAL SECURITY ASSESSOR Morgan Caldwell MD CHEMISTRY ORDERABLES Linda l Result Performing Organization Address [facility] Phone Number INTERFACE SYSTEM Refer to clinic/hospital department * (ABNORMAL) POC GLUCOSE (05/30/2005 12:03 PM SOCIAL SECURITY ASSESSOR) GLUCOSE POC 158(H) 65 - 109 mg/dL INTERFACE SYSTEM 05/30/2005 12:0 3 PM SOCIAL SECURITY ASSESSOR Morgan Caldwell MD POINT OF CARE TESTING Fin al Result Performing Organization Address [facility] de Phone Number INTERFACE SYSTEM Refer to clinic/hospital department * (ABNORMAL) POC RT, BLOOD GASES (05/30/2005 11:14 AM SOCIAL SECURITY ASSESSOR) PH ARTERIAL 7.38 7.35 - 7.45 INTERFACE SYSTEM PCO2 ARTERIAL 43 35 - 48 mm Hg INTERFACE SYSTEM PO2 ARTERIAL 102 83 - 108 mm Hg INTERFACE SYSTEM O2 SAT EST ABG POC 98 95 - 99 % INTERFACE SYSTEM PATIENT'S TEMPERATURE 37.0 Degree C INTERFACE SYSTEM BASE EXCESS ABG 0.1 -2.0 - 3.0 mmol/L INTERFACE SYSTEM HCO3 ARTERIAL 25 22 - 26 mmol/L INTERFACE SYSTEM SODIUM POC 134(L) 135 - 145 mmol/L INTERFACE SYSTEM POTASSIUM POC 4.2 3.5 - 4.9 mmol/L INTERFACE SYSTEM CALICUM IONIZED, WHOLE BLOOD 4.61(L) 4.76 - 5.16 mg/dL INTERFACE SYSTEM HEMATOCRIT POC 39.0(L) 40.0 - 48.0 % INTERFACE SYSTEM FIO2 1 INTERFACE SYSTEM OXYGEN MODE SIMV INTERFAC E SYSTEM PEEP POC 5 INTERFACE SYSTEM COMMENT, GASES POC RN NOTIFIED INTERFACE SYSTEM 05/30/2005 11:1 4 AM SOCIAL SECURITY ASSESSOR Morgan Caldwell MD CHEMISTRY ORDERABLES Linda l Result Performing Organization Address [facility] Phone Number INTERFACE SYSTEM Refer to clinic/hospital department * (ABNORMAL) CVR ONLY, CKMB/CK (05/30/2005 11:02 AM SOCIAL SECURITY ASSESSOR) Pathologist [facility] CKMB 18.0(AA) <=6.7 ng/mL INTERFACE SYSTEM Comment:Results called to ab by at 05/30/2005 11:48 AM and read back verified. CKMB INTERP See Below INTERFAC E SYSTEM Comment:Elevated CKMB,Consis tent with Myocardial Injury. CK 202(H) 10 - 170 U/L INTERFACE SYSTEM Comment:Hemolyzed: Result ma y be falsely elevated. CARDIAC RELATIVE INDEX 8.9(H) <=4.0 INTERFACE SYSTEM 05/30/2005 11:0 2 AM SOCIAL SECURITY ASSESSOR us John Hurd MD CHEMISTRY ORDERABLES Final Re sult Performing Organization Address [facility] de Phone Number INTERFACE SYSTEM Refer to clinic/hospital department * (ABNORMAL) CBC WITH DIFFERENTIAL (05/30/2005 11:02 AM SOCIAL SECURITY ASSESSOR) NEUTROPHILS 85(H) 45 - 70 % INTERFAC E SYSTEM LYMPHOCYTES 6(L) 16 - 45 % INTERFAC E SYSTEM MONOCYTES 7 3 - 13 % INTERFACE SYSTEM EOSINOPHILS 1 0 - 7 % INTERFAC E SYSTEM BASOPHILS 0 0 - 2 % INTERFACE SYSTEM NEUTROPHIL ABSOLUTE 17.98(H) 1.90 - 7.00 K/uL INTERFACE SYSTEM LYMPHOCYTE ABSOLUTE 1.36 0.70 - 4.50 K/uL INTERFACE SYSTEM MONOCYTE ABSOLUTE 1.47(H) 0.10 - 1.30 K/uL INTERFACE SYSTEM EOSINOPHIL ABSOLUTE 0.30 0.00 - 0.70 K/uL INTERFACE SYSTEM BASOPHILS ABSOLUTE 0.06 0.00 - 0.20 K/uL INTERFACE SYSTEM 05/30/2005 11:0 2 AM SOCIAL SECURITY ASSESSOR John Hurd MD HEMATOLOGY ORDERABLES Final R esult Performing Organization Address [facility] de Phone Number INTERFACE SYSTEM Refer to clinic/hospital department * (ABNORMAL) CBC WITH DIFFERENTIAL (05/30/2005 11:02 AM SOCIAL SECURITY ASSESSOR) WBC 21.2(H) 4.0 - 9.8 K/uL INTERFACE SYSTEM RBC 4.44(L) 4.50 - 5.40 M/uL INTERFACE SYSTEM HEMOGLOBIN 12.4(L) 13.6 - 16.5 g/dL INTERFACE SYSTEM HEMATOCRIT 38.2(L) 40.0 - 48.0 % INTERFACE SYSTEM MCV 86.0 82.0 - 99.0 fL INTERFACE SYSTEM MCH 27.9 27.2 - 32.6 pg INTERFACE SYSTEM MCHC 32.5 31.5 - 35.5 % INTERFACE SYSTEM RDW 13.6 11.5 - 14.5 % INTERFACE SYSTEM RDW-STDEV 42.7 37.1 - 48.7 fL INTERFACE SYSTEM PLATELETS 270 140 - 350 K/uL INTERFACE SYSTEM MPV 9.4 9.3 - 12.4 fL INTERFACE SYSTEM 05/30/2005 11:0 2 AM SOCIAL SECURITY ASSESSOR John Hurd MD HEMATOLOGY ORDERABLES Final R esult Performing Organization Address [facility] Co de Phone Number INTERFACE SYSTEM Refer to clinic/hospital department * (ABNORMAL) PT AND APTT (05/30/2005 11:02 AM SOCIAL SECURITY ASSESSOR) PROTIME 15.9(H) 12.7 - 15.1 Seconds INTERFACE SYSTEM INR 1.2(H) 0.9 - 1.1 INTERFACE SYSTEM Comment: INR Therapeutic Range: Adult: 2.0 - 3.0 for pulmonary embolism or prophylaxis against venous thrombosis or systemic embolization. 2.0 - 3.0 for patients with tissue heart valves. 2.5 - 3.5 for patients with mechanical heart valves or post [place]. Pediatric (12 years and under): 1.5 - 3.0 Although the target range in children is not well established , INR values of 1.5 - 3.0 are recommended for most patients. Higher values have been used in children with prosthetic cardiac valves and hereditary clotting disorders. (<3 days) therapeutic ranges have not been established. PTT 68.6(H) 24.4 - 36.4 Seconds INTERFACE SYSTEM Comment: PTT Therapeutic Range: Heparin Level PTT (seconds) <0.10 units/mL <53 0.10 - 0.30 units/mL 53 - 67 0.30 - 0.70 units/mL* 67 - 95* 0.70 - 1.00 units/mL 95 - 116 *corresponds to therapeutic range for unfractionated heparin 05/30/2005 11:0 2 AM SOCIAL SECURITY ASSESSOR John Hurd MD HEMATOLOGY ORDERABLES Final R esult Performing Organization Address [facility] Phone Number INTERFACE SYSTEM Refer to clinic/hospital department * MAGNESIUM LEVEL (05/30/2005 11:02 AM SOCIAL SECURITY ASSESSOR) MAGNESIUM 1.5 1.5 - 2.5 mg/dL INTERFACE SYSTEM 05/30/2005 11:0 2 AM SOCIAL SECURITY ASSESSOR John Hurd MD CHEMISTRY ORDERABLES Final Re sult Performing Organization Address [facility] Phone Number INTERFACE SYSTEM Refer to clinic/hospital department * (ABNORMAL) BASIC METABOLIC PANEL (05/30/2005 11:02 AM SOCIAL SECURITY ASSESSOR) GLUCOSE 146(H) 65 - 109 mg/dL INTERFACE SYSTEM CREATININE 0.7 0.5 - 1.3 mg/dL INTERFACE SYSTEM CALCIUM 7.6(L) 8.6 - 10.2 mg/dL INTERFACE SYSTEM BUN 13 6 - 20 mg/dL INTERFACE SYSTEM SODIUM 136 135 - 145 mmol/L INTERFACE SYSTEM POTASSIUM 4.2 3.5 - 4.9 mmol/L INTERFACE SYSTEM CHLORIDE 104 96 - 108 mmol/L INTERFACE SYSTEM CO2 25 22 - 30 mmol/L INTERFACE SYSTEM 05/30/2005 11:0 2 AM SOCIAL SECURITY ASSESSOR John Hurd MD CHEMISTRY ORDERABLES Final Re sult Performing Organization Address [facility] Phone Number INTERFACE SYSTEM Refer to clinic/hospital department * URINALYSIS (05/29/2005 10:00 AM SOCIAL SECURITY ASSESSOR) COLOR UA Yellow INTERFACE SYSTEM CLARITY UA Clear Clear INTERFACE SYSTEM SPECIFIC GRAVITY UA 1.010 1.001 - 1.035 INTERFACE SYSTEM PH UA 6.5 5.0 - 8.0 INTERFACE SYSTEM LEUKOCYTE ESTERASE UA Negative Negative INTERFACE SYSTEM NITRITE UA Negative Negative INTERFACE SYSTEM PROTEIN UA Negative Negative INTERFACE SYSTEM GLUCOSE UA Negative Negative INTERFACE SYSTEM KETONES UA Negative Negative INTERFACE SYSTEM UROBILINOGEN UA <1 <1 mg/dL INTE RFACE SYSTEM BILIRUBIN UA Negative Negative INTERFA CE SYSTEM BLOOD UA Negative Negative INTERFACE SYSTEM 05/29/2005 10:0 0 AM SOCIAL SECURITY ASSESSOR Result [facility] Morgan Caldwell MD URINE ORDERABLES Final Re sult Performing Organization Address [facility] INTERFACE SYSTEM Refer to clinic/hospital department * URINALYSIS WITH REFLEX CULTURE (05/29/2005 10:00 AM SOCIAL SECURITY ASSESSOR) URINE CULTURE ORDER Not indicated INTERFACE SYSTEM Comment: Criteria for a reflex culture include one or more of the following: Abn ormal nitrite, leukocyte esterase, WBCs or RBCs. Lack of qualifying criteria does not exclude the possiblity of a urinary tract infection. Dilute urine, drug interference, etc. may decrease the sensitivity of the criteria analytes. 05/29/2005 10:0 0 AM SOCIAL SECURITY ASSESSOR Morgan Caldwell MD URINE ORDERABLES Final Re sult Performing Organization Address [facility] Phone Number INTERFACE SYSTEM Refer to clinic/hospital department * (ABNORMAL) CBC WITH DIFFERENTIAL (05/28/2005 5:00 AM SOCIAL SECURITY ASSESSOR) NEUTROPHILS 69 45 - 70 % INTERFAC E SYSTEM LYMPHOCYTES 18 16 - 45 % INTERFAC E SYSTEM MONOCYTES 8 3 - 13 % INTERFACE SYSTEM EOSINOPHILS 4 0 - 7 % INTERFAC E SYSTEM BASOPHILS 1 0 - 2 % INTERFACE SYSTEM NEUTROPHIL ABSOLUTE 8.12(H) 1.90 - 7.00 K/uL INTERFACE SYSTEM LYMPHOCYTE ABSOLUTE 2.14 0.70 - 4.50 K/uL INTERFACE SYSTEM MONOCYTE ABSOLUTE 0.92 0.10 - 1.30 K/uL INTERFACE SYSTEM EOSINOPHIL ABSOLUTE 0.50 0.00 - 0.70 K/uL INTERFACE SYSTEM BASOPHILS ABSOLUTE 0.06 0.00 - 0.20 K/uL INTERFACE SYSTEM 05/28/2005 5:00 AM SOCIAL SECURITY ASSESSOR Morgan Caldwell MD HEMATOLOGY ORDERABLES Fin al Result Performing Organization Address [facility] Phone Number INTERFACE SYSTEM Refer to clinic/hospital department * (ABNORMAL) CBC WITH DIFFERENTIAL (05/28/2005 5:00 AM SOCIAL SECURITY ASSESSOR) WBC 11.7(H) 4.0 - 9.8 K/uL INTERFACE SYSTEM RBC 4.89 4.50 - 5.40 M/uL INTERFACE SYSTEM HEMOGLOBIN 14.0 13.6 - 16.5 g/dL INTERFACE SYSTEM HEMATOCRIT 42.2 40.0 - 48.0 % INTERFACE SYSTEM MCV 86.3 82.0 - 99.0 fL INTERFACE SYSTEM MCH 28.6 27.2 - 32.6 pg INTERFACE SYSTEM MCHC 33.2 31.5 - 35.5 % INTERFACE SYSTEM RDW 13.7 11.5 - 14.5 % INTERFACE SYSTEM RDW-STDEV 42.9 37.1 - 48.7 fL INTERFACE SYSTEM PLATELETS 303 140 - 350 K/uL INTERFACE SYSTEM MPV 9.6 9.3 - 12.4 fL INTERFACE SYSTEM 05/28/2005 5:00 AM SOCIAL SECURITY ASSESSOR Morgan Caldwell MD HEMATOLOGY ORDERABLES Fin al Result Performing Organization Address [facility] Phone Number INTERFACE SYSTEM Refer to clinic/hospital department * (ABNORMAL) COMPREHENSIVE METABOLIC PANEL (05/28/2005 4:45 AM SOCIAL SECURITY ASSESSOR) GLUCOSE 121(H) 65 - 109 mg/dL INTERFACE SYSTEM CREATININE 0.9 0.5 - 1.3 mg/dL INTERFACE SYSTEM CALCIUM 8.3(L) 8.6 - 10.2 mg/dL INTERFACE SYSTEM AST 16 12 - 38 U/L INTERFACE SYSTEM ALKALINE PHOSPHATASE 37(L) 40 - 129 U/L INTERFACE SYSTEM BILIRUBIN TOTAL 0.3 0.2 - 1.0 mg/dL INTERFACE SYSTEM ALBUMIN 3.8 3.4 - 4.8 g/dL INTERFACE SYSTEM TOTAL PROTEIN 6.7 6.3 - 8.6 g/dL INTERFACE SYSTEM ALT 20 0 - 41 U/L INTERFACE SYSTEM BUN 18 6 - 20 mg/dL INTERFACE SYSTEM SODIUM 137 135 - 145 mmol/L INTERFACE SYSTEM POTASSIUM 3.6 3.5 - 4.9 mmol/L INTERFACE SYSTEM CHLORIDE 100 96 - 108 mmol/L INTERFACE SYSTEM CO2 25 22 - 30 mmol/L INTERFACE SYSTEM 05/28/2005 4:45 AM SOCIAL SECURITY ASSESSOR us Ranjit Knight MD CHEMISTRY ORDERABLES Final Re sult Performing Organization Address [facility] Phone Number INTERFACE SYSTEM Refer to clinic/hospital department * PROTIME-INR (05/28/2005 4:45 AM SOCIAL SECURITY ASSESSOR) PROTIME 14.5 12.7 - 15.1 Seconds INTERFACE SYSTEM INR 1.0 0.9 - 1.1 INTERFACE SYSTEM Comment: INR Therapeutic Range: Adult: 2.0 - 3.0 for pulmonary embolism or prophylaxis against venous thrombosis or systemic embolization. 2.0 - 3.0 for patients with tissue heart valves. 2.5 - 3.5 for patients with mechanical heart valves or post [place]. Pediatric (12 years and under): 1.5 - 3.0 Although the target range in children is not well established , INR values of 1.5 - 3.0 are recommended for most patients. Higher values have been used in children with prosthetic cardiac valves and hereditary clotting disorders. (<3 days) therapeutic ranges have not been established. 05/28/2005 4:45 AM SOCIAL SECURITY ASSESSOR us Ranjit Knight MD HEMATOLOGY ORDERABLES Final R esult Performing Organization Address [facility] de Phone Number INTERFACE SYSTEM Refer to clinic/hospital department * PTT (05/28/2005 4:45 AM SOCIAL SECURITY ASSESSOR) PTT 29.7 24.4 - 36.4 Seconds INTERFACE SYSTEM Comment: PTT Therapeutic Range: Heparin Level PTT (seconds) <0.10 units/mL <53 0.10 - 0.30 units/mL 53 - 67 0.30 - 0.70 units/mL* 67 - 95* 0.70 - 1.00 units/mL 95 - 116 *corresponds to therapeutic range for unfractionated heparin 05/28/2005 4:45 AM SOCIAL SECURITY ASSESSOR us Ranjit Knight MD HEMATOLOGY ORDERABLES Final R esult Performing Organization Address [facility] Phone Number INTERFACE SYSTEM Refer to clinic/hospital department * TROPONIN (W/REFLEX CKMB/CK) (05/28/2005 4:35 AM SOCIAL SECURITY ASSESSOR) TROPONIN T <0.01 <=0.03 ng/mL INTERFACE SYSTEM TROPONIN T INTERP Negative INTERFACE SYSTEM 05/28/2005 4:35 AM SOCIAL SECURITY ASSESSOR us Morgan Caldwell MD CHEMISTRY ORDERABLES Linda l Result Performing Organization Address [facility] Phone Number INTERFACE SYSTEM Refer to clinic/hospital department * PTT (05/27/2005 7:16 PM SOCIAL SECURITY ASSESSOR) PTT 29.2 24.4 - 36.4 Seconds INTERFACE SYSTEM Comment: PTT Therapeutic Range: Heparin Level PTT (seconds) <0.10 units/mL <53 0.10 - 0.30 units/mL 53 - 67 0.30 - 0.70 units/mL* 67 - 95* 0.70 - 1.00 units/mL 95 - 116 *corresponds to therapeutic range for unfractionated heparin 05/27/2005 7:16 PM SOCIAL SECURITY ASSESSOR us Ranjit Knight MD HEMATOLOGY ORDERABLES Final R esult Performing Organization Address [facility] Phone Number INTERFACE SYSTEM Refer to clinic/hospital department * POC ACTIVATED CLOTTING TIME (05/27/2005 11:32 AM SOCIAL SECURITY ASSESSOR) ACT POC 272 Seconds INTERFACE SYSTEM Comment: Normal Donors range 113-149 Non-heparin patients 89-169 ACT value for sheath pull at [facility] has been established to be < or = to 1 70. (See also Nursing Procedures for sheath pull in related nursing areas) 05/27/2005 11:3 2 AM SOCIAL SECURITY ASSESSOR us Morgan Caldwell MD POINT OF CARE TESTING Fin al Result Performing Organization Address [facility] de Phone Number INTERFACE SYSTEM Refer to clinic/hospital department * POC ACTIVATED CLOTTING TIME (05/27/2005 11:28 AM SOCIAL SECURITY ASSESSOR) ACT POC 86 Seconds INTERFACE SYSTEM Comment: Normal Donors range 113-149 Non-heparin patients 89-169 ACT value for sheath pull at [facility] has been established to be < or = to 1 70. (See also Nursing Procedures for sheath pull in related nursing areas) 05/27/2005 11:2 8 AM SOCIAL SECURITY ASSESSOR us Morgan Caldwell MD POINT OF CARE TESTING Fin al Result Performing Organization Address [facility] de Phone Number INTERFACE SYSTEM Refer to clinic/hospital department documented in this encounter Visit Diagnoses Diagnosis Coronary atherosclerosis of [place] coronary artery- Primary documented in this encounter Care Teams Wrapper Leaf Inspector Relationship Specialty Start Date End Date Aaron Wesley MD [address] [place] [address] PCP - General 06/30/05 documented as of this encounter
--- OUTSIDE RECORDS SUMMARY | 2024-05-10 11:44 | XMS_ITS | Clinical Summary ---
Author Organization [facility] [address] Address [address] [place] [address] Care Team Providers Care Rn Plastics Name Role Phone Eileen Shields DO Primary Care Provider [phone]- [phone] Allergies No known active allergies Medications nitroglycerin [...] every day 0 0 01/21/20 16 Active rfknszus-xot-Q W-ehhhgpo-zdzd in 0.4-300-250 mg-mcg-mcg tabletIndicati ons:Vitamin Deficiency Prevention [...] Hx of CABG 02/14/2017 Coronary arteriosclerosis in [place] artery 12/30 Overview (07/01/2016): Coronary arteriosclerosis in [place] artery Surgical History Surgery Date Site/Laterality Comments CHOLECYSTECTOMY 03/27/2017 - 04/26/2017 Medical History Medical History Date Comments Hypertension Hypertension Hx Other Medical dyslipidemia Family History Medical History Relation Name Comments Heart attack Father 2 Myocardial Infa rction; Heart attack Maternal Grandfather 2 Myoca rdial Infarction; Cause of : Myocardial Infarction Heart failure Mother 2 Congestive Hea rt Failure; Relation Name Status Comments Father 1 Alive Father 2 Maternal Grandfather 1 Maternal Grandfather 2 Mother 1 Alive Mother 2 Social History Tobacco Use Types Packs/Day Years Used Date Smoking Tobacco: Former Smokeless Tobacco: Never Tobacco Cessation:Counseling Given: Not Answered Alcohol Use Standard Drinks/Week Comments Yes 0 (1 standard drink = 0.6 oz pur e alcohol) Sex and Gender Information Value Date Recorded Sex Assigned at Not on file Legal Sex Male 1:23 PM COKE [employer] [place]ON Gender Identity Not on file Sexual Orientation Not on file Obstetrics History Last Filed Vital Signs Vital Sign Reading Time Taken Comments Blood Pressure 120/72 11/21/2023 9:41 AM CDT Pulse 82 11/21/2023 9:41 AM CDT Temperature 36.6 C (97.8 F) 01/30/2020 8:09 AM [employer]KE [employer] [place]ON Respiratory Rate - - Oxygen Saturation 96% 11/21/2023 9:41 AM CDT Inhaled Oxygen Concentration - - Weight 114.4 kg (252 lb 3.2 oz) 11/21/2023 9:41 AM CDT Height 170.2 cm (5' 7 ) 11/21/2023 9:41 AM CDT Body Mass Index 39.5 11/21/2023 9:41 AM CDT Plan of Treatment Health Maintenance Due Date Last Done Comments Colon Cancer Screening-Colonoscopy 1950 Depression Screening 1950 Fall Risk Assessment 1950 Hepatitis C Screening 1950 Pneumococcal vaccine 65+ (1 of 2 - PCV) 1955 DTaP/Tdap/Td Vaccine (1 - Tdap) 1960 Hepatitis B Screening 1967 Zoster Vaccine (1 of 2) 1999 Well Visit 65+ 2014 Influenza Vaccine (#1) 2023 9, 01/29/2018, 03/23/2001, Additional history exists Abdominal Aortic Aneurysm (A AA) Screen Completed 04/11/2015 Procedures Procedure Name Priority Date/Time Associated Diagnosis Comments CT ABDOMEN PELVIS W CONTRAST Routine 04/11/2015 11:32 AM COKE [employer]EN [place]ON from Last 3 Months or Most Recently Relevant to Health Maintenance Results * CT Abdomen Pelvis W Contrast (04/11/2015 11:32 AM [employer] [place]ON) Anatomical Region Laterality Modality Body N/A Computed Tomogra phy 04/11/2015 11:3 2 AM [employer] [place] Narrative 04/13/2015 3:23 PM [employer] [place] ABEL GREGORY M.D. ANA ROPER M.D. FINAL REPORT The radiology attending physician has personally reviewed this study, and has reviewed and/or edited this written report and agrees with it. ACC# Date Time Exam [id number] Apr 11, 2015 11:32:[id number] Abd & Pelvis with cont ACC# Date Time Exam [id number] Apr 11, 2015 11:32:[id number] Abd & Pelvis with cont EXAMINATION: [...] wires are cerclage wires, wires 3-6 are wnrokf-kr-ghasc. First sternal wire is 9 mm anterior [...] GREGORY M.D. on Apr 13 2015 3:23P [id number] Procedure Note Provider, MD Mikayla - 07/31/2016 ABEL GREGORY M.D. ANA ROPER M.D. FINAL REPORT The radiology attending physician has personally reviewed this study, and has reviewed and/or edited this written report and agrees with it. ACC# Date Time Exam [id number] Apr 11, 2015 11:32:[id number] Abd & Pelvis with cont ACC# Date Time Exam [id number] Apr 11, 2015 11:32:[id number] Abd & Pelvis with cont EXAMINATION: [...] wires are cerclage wires, wires 3-6 are qhheki-tf-irnje. First sternal wire is 9 mm anterior [...] GREGORY M.D. on Apr 13 2015 3:23P [id number] Historical Provider IMMarjorie CT PROCEDURES Final R esult from Last 3 Months or Most Recently Relevant to Health Maintenance Insurance [employer] [facility] MED[facility] Address: [facility] [address] [place] [address] [place] [address] [employer] Care Teams Rn Plastics Relationship Specialty Start Date End Date Eileen Shields DO PCP - General Family Medicine 11/07/19
--- OUTSIDE RECORDS SUMMARY | 2024-05-10 11:44 | XMS_ITS | Encounter Summary ---
Author Organization [facility] Address [address] [place] [address] Care Team Providers Care Garnett Machine Operator Helper Name Role Phone Aaron Wesley MD Primary Care Provider Encounter Details Date Type Department Care Team (Late st Contact Info) Description 05/27/2005 Outpatient Historical [facility] ([facility]iology[facility]) [address] 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
[2024-05-10 12:43] LABS: Influenza A QL RT-PCR Negative (Negative); Influenza B QL RT-PCR Negative (Negative); RSV RNA, RT-PCR Negative (Negative); SARS-CoV-2 RNA PCR Positive (Negative)
== END 2024-05-10 11:42 | disposition home or self-care (01) ==
LOC: ANHLAB 11:42
PROVIDERS: PCP Nurse Practitioner; Visit Provider Family Medicine
DX: U07.1 COVID-19 (principal)
CPT/HCPCS: 87637

== ENCOUNTER 2024-06-20 13:04 | Emergency (ER) | payer MEDICARE, SELFPAY ==
--- NOTE | 2024-06-20 13:09 | ED.URI ---
HPI - URI/Sore Throat General Chief Complaint: Upper Respiratory Infection Stated Complaint: SINUS CONGESTION Time Seen by Provider: 06/20/24 13:25 Source: patient Mode of arrival: ambulatory Limitations: no limitations History of Present Illness HPI Narrative: Jimy is a 74-year-old male patient presenting to the clinic today with complaints of right maxillary sinus congestion x6 days. He reports no fevers, chills, body aches. Does have a lot of sinus pressure and pain over the right maxillary area and states that it hurts to chew. This is causing him some dental pain as well. Related Data Home Medications ?Medication ?Instructions ?Recorded ?Confirmed ?Last Taken ?Type multivitamin 1 tablet PO DAILY 02/19/19 05/10/24 06/16/22 History rivaroxaban 20 mg tablet (Xarelto) 20 mg PO DAILY 11/08/22 05/10/24 12/24/22 History acetaminophen 500 mg tablet 1,000 mg PO DAILY 12/20/22 05/10/24 Unknown History (Acetaminophen Extra Strength) vitamins A,C,Z-tpib-jlgapz 2,148 2 tablet PO BID 08/04/23 05/10/24 Unknown History mcg-113 mg-45 mg-17.4 mg tablet (PreserVision AREDS) Allergies Allergy/AdvReac Type Severity Reaction Status Date / Time No Known Allergies Allergy Verified 06/20/24 13:25 Review of Systems Review of Systems: Pertinent positives per HPI. Patient denies any fever, chills, rash, headache, visual changes, dizziness, cough, shortness of breath, chest pain, palpitations, nausea, vomiting, diarrhea, constipation, abdominal pain, or any urinary issues. [facility] Past Medical History Medical History Acute otitis media Coronary atherosclerosis of [place] coronary artery Essential (primary) hypertension Metabolic syndrome Mixed hyperlipidemia Obesity, unspecified Prediabetes Asbestos exposure Hepatitis C antibody test negative (~01/13/17) Surgical History Surgical History History of coronary angioplasty (~1995) Hx of CABG (~05/25/05) History of colonoscopy (~07/23/07) Hx of CABG (~03/27/15) Hx of cholecystectomy (~03/27/17) Family History Family History Mother Family history of coronary artery disease, Onset Age: 89 Family history of cardiovascular disease Family history of chronic obstructive pulmonary disease Father Family history of coronary artery disease, Onset Age: 93 Hypertension Family history of elevated blood lipids Family history of cardiovascular disease Acute myocardial infarction Family history of atrial fibrillation Other Family history of allergic disorder Social History Social History Social History: Caffeine-coffee daily Smoking packs per day: 1 Smoking cigarettes per day: 20.0 Years smoked: 7 Smoking pack-years: 7.00 Smoking status: Former smoker Tobacco type: cigarettes Second hand tobacco smoke exposure: Yes Smoking end date: 03/27/77 Alcohol intake: current Drinks per week: 1 Alcohol use details: beer Substance use: never Substance use type: does not use Lack of Transportation: No Lack of Food: Never True Current Housing: I Have Housing Concerned About Future Housing: No Difficulty Paying Gas/Electric Bills: No Difficulty Paying for Meds: No Currently Unemployed: Decline to Answer Education: Associate Degree Difficulty w/ Childcare or Family Care: No Living arrangements: with family Spiritual care concerns: No Comments At the time of my signature, I reviewed and agree with the nursing past medical, surgical, social, and family history. There is no relevant family history pertinent to the patient complaint. Exam Narrative: General: Well-developed, well nourished, in no apparent distress Head: Normocephalic, atraumatic Eyes: Pupils equally round and reactive to light bilaterally, EOM intact, sclera and conjunctive clear, no discharge, lids normal Ears: TMs intact and clear, ear canals clear, no drainage, grossly hearing normal. Nose: Nares patent, clear nasal discharge, moderate inflammation with scabbing to the right anterior nares, right maxillary sinus tenderness. Mouth: Oral pharynx without lesions or masses, good dentition, MMM. Postnasal drip Neck: Supple, trachea midline, no enlargement of anterior or posterior cervical nodes, no thyroid masses or goiter palpable. Cardio: Regular rate and rhythm, s1 and s2 normal, no murmur appreciated. Resp: Clear to auscultation bilaterally, no rhonchi, rales, wheezing or rubs Course Course Emergency Course: Portions of this record may have been created with voice recognition software. Level of Care: Express Care Visit Vital Signs Vital signs: Vital Signs Oxygen Delivery Room Air 06/20/24 13:19 Temperature 36.9 C 06/20/24 13:22 Pulse Rate 86 06/20/24 13:22 Respiratory Rate 16 06/20/24 13:22 Blood Pressure 158/86 H 06/20/24 13:22 Pulse Oximetry 100 06/20/24 13:22 Oxygen Delivery Room Air 06/20/24 13:19 Vital signs reviewed MDM - URI/Sore Throat MDM Narrative Medical decision making narrative: At the time of visit patient is resting comfortably on the exam table. Patient appears to be nontoxic. Plan: I suspect patient has right maxillary sinusitis. Prescription for prednisone was sent to the pharmacy. Patient already has prescription for a 7 day course of Augmentin. Supportive measures were discussed with the patient and they voiced understanding discharge instructions and agrees to treatment plan. Return precautions reviewed Differential Diagnosis Differential diagnosis: Likely upper respiratory infection, otitis media, sinusitis, viral infection, bronchitis, influenza, pharyngitis and other (COVID) Discharge Plan Discharge Clinical Impression: Right maxillary sinusitis Patient Disposition: Home, Self-Care Condition: Stable Instructions: Antibiotic Form, Sinusitis (ED) Additional Instructions: Take prescription medications only as prescribed-prednisone Increase fluids and stay well hydrated Tylenol/motrin for pain/fever Flonase and OTC antihistamines as directed Vicks vapor rub to open sinuses Sinus rinses for congestion Cepacol spray, cough drops, throat lozenges, warm tea with honey/lemon, gargle salt water to soothe throat BRAT diet for diarrhea Clear liquids x 24 hours then advance as tolerated for nausea/vomiting Go to the ED if you develop a worsening in your condition- high fever not controlled by Tylenol or Motrin, dehydration, weakness, lethargy, shortness of breath, or chest pain. Follow up with your PCP in 3-5 days if symptoms persist. Patient Language: Thai Prescriptions: New prednisone 20 mg tablet 40 mg PO DAILY 5 Days Qty: 10 0RF No Action PreserVision AREDS 2,148 mcg-113 mg-45 mg-17.4mg Tablet 2 tablet PO BID Rx Instructions: administer with AM and PM meals albuterol sulfate 90 mcg/actuation HFA aerosol inhaler 2 puff inhalation Q4-6H PRN (Reason: shortness of breath or wheezing) 30 Days Qty: 8.5 0RF amoxicillin-pot clavulanate 875-125 mg tablet 1 tablet PO BID Qty: 20 0RF methylprednisolone 4 mg tablets,dose pack See Rx Instructions PO PER PKG DIR Qty: 21 0RF Rx Instructions: PO PER PKG DIR multivitamin Tablet 1 tablet PO DAILY Xarelto 20 mg tablet 20 mg PO DAILY Rx Instructions: must administer with evening meal fluticasone propionate [Flonase Allergy Relief] 50 mcg/actuation spray,suspension 2 spray intranasal BID PRN (Reason: ALLERGIES) Qty: 16 0RF Rx Instructions: administer into each nostril methylprednisolone [Medrol (Kelvin)] 4 mg tablets,dose pack See Rx Instructions PO PER PKG DIR Qty: 21 0RF Rx Instructions: PO PER PKG DIR amoxicillin-pot clavulanate 875-125 mg tablet 1 tablet PO BID Qty: 14 0RF acetaminophen [Acetaminophen Extra Strength] 500 mg Tablet 1,000 mg PO DAILY atorvastatin 80 mg tablet 80 mg PO HS Qty: 90 0RF valsartan-hydrochlorothiazide 160-12.5 mg tablet See Rx Instructions .ROUTE .COMPLEX Qty: 100 1RF Dose Instruction: TAKE 1 TABLET BY MOUTH DAILY Rx Instructions: TAKE 1 TABLET BY MOUTH DAILY clopidogrel 75 mg tablet 75 mg PO DAILY Qty: 100 1RF Rx Instructions: TAKE 1 TABLET BY MOUTH DAILY metoprolol tartrate 50 mg tablet See Rx Instructions .ROUTE .COMPLEX Qty: 100 1RF Dose Instruction: TAKE ONE-HALF TABLET BY MOUTH TWICE DAILY Rx Instructions: TAKE ONE-HALF TABLET BY MOUTH TWICE DAILY Follow-up/Referrals: Eileen Shields DO [Primary Care Provider] - Time of Disposition: 13:24 Quality NIHSS Nursing Documentation ED NIHSS nursing documentation: reviewed/agree
[2024-06-20 13:22] VITALS: BP 158/86; PULSE 86; RESP 16; TEMP 36.9; O2SAT 100
== END 2024-06-20 13:31 | disposition home or self-care (01) ==
PROVIDERS: Emergency Provider Nurse Practitioner Family; PCP Family Medicine
DX: J32.0 Chronic maxillary sinusitis (principal); Z87.891 Personal history of nicotine dependence; I25.10 Atherosclerotic heart disease of native coronary artery without angina pectoris; I10 Essential (primary) hypertension; E78.2 Mixed hyperlipidemia; E88.810 Metabolic syndrome; E66.9 Obesity, unspecified; Z68.39 Body mass index [BMI] 39.0-39.9, adult; Z95.1 Presence of aortocoronary bypass graft
CPT/HCPCS: 99213; G0463

== ENCOUNTER 2025-02-08 10:41 | Emergency (ER) | payer MEDICARE, SELFPAY ==
[2025-02-08 11:05] VITALS: BP 133/74; PULSE 69; RESP 16; TEMP 36.3; O2SAT 97
--- NOTE | 2025-02-08 12:10 | ED.EAR ---
HPI - Ear Problem General Chief complaint: Ear Stated complaint: SINUS/EARACHE Time Seen by Provider: 02/08/25 12:01 Source: patient and RN notes reviewed Mode of arrival: ambulatory Limitations: no limitations History of Present Illness HPI Narrative: 74-year-old male patient presents today with right ear pain and bilateral sinus pressure x2 days. Denies sore throat, fever, cough. He has tried an antihistamine, Tylenol, and Flonase with mild relief. Reports history of sinusitis. Related Data Home Medications ?Medication ?Instructions ?Recorded ?Confirmed ?Last Taken ?Type multivitamin 1 tablet PO DAILY 02/19/19 02/08/25 06/16/22 History rivaroxaban 20 mg tablet (Xarelto) 20 mg PO DAILY 11/08/22 02/08/25 12/24/22 History acetaminophen 500 mg tablet 1,000 mg PO DAILY 12/20/22 02/08/25 Unknown History (Acetaminophen Extra Strength) vitamins A,C,M-[id number] 2,148 2 tablet PO BID 08/04/23 02/08/25 Unknown History mcg-113 mg-45 mg-17.4 mg tablet (PreserVision AREDS) Allergies Allergy/AdvReac Type Severity Reaction Status Date / Time No Known Allergies Allergy Verified 02/08/25 11:05 [facility] Past Medical History Medical History (Updated 02/08/25 @ 12:15 by Annemarie Golden APRN, [facility]) Basal cell carcinoma Acute otitis media Coronary atherosclerosis of [place] coronary artery Essential (primary) hypertension Metabolic syndrome Mixed hyperlipidemia Obesity, unspecified Prediabetes Asbestos exposure Hepatitis C antibody test negative (~01/13/17) Surgical History Surgical History History of coronary angioplasty (~1995) Hx of CABG (~05/25/05) History of colonoscopy (~07/23/07) Hx of CABG (~03/27/15) Hx of cholecystectomy (~03/27/17) Family History Family History Mother Family history of coronary artery disease, Onset Age: 89 Family history of cardiovascular disease Family history of chronic obstructive pulmonary disease Father Family history of coronary artery disease, Onset Age: 93 Hypertension Family history of elevated blood lipids Family history of cardiovascular disease Acute myocardial infarction Family history of atrial fibrillation Other Family history of allergic disorder Social History Social History (Reviewed 02/08/25 @ 12:11 by Annemarie Golden, [employer]PERATOR [employer], OPERATIONS SUPERINTENDENT) Social History: Caffeine-coffee daily Smoking packs per day: 1 Smoking cigarettes per day: 20.0 Years smoked: 7 Smoking pack-years: 7.00 Smoking status: Former smoker Tobacco type: cigarettes Second hand tobacco smoke exposure: Yes Smoking end date: 03/27/77 Alcohol intake: current Drinks per week: 1 Alcohol use details: beer Substance use: never Substance use type: does not use Lack of Transportation: No Lack of Food: Never True Current Housing: I Have Housing Concerned About Future Housing: No Difficulty Paying Gas/Electric Bills: No Difficulty Paying for Meds: No Currently Unemployed: Decline to Answer Education: Associate Degree Difficulty w/ Childcare or Family Care: No Living arrangements: with family Spiritual care concerns: No Comments At time of signature, I have reviewed and agree with nursing past medical, surgical, social and family history unless otherwise noted. Please see nursing chart for further information. There is no relevant family history pertinent to the presenting complaint Exam Narrative: GENERAL: Well-appearing, well-nourished, and in no acute distress. HEAD: Normocephalic, atraumatic. EYES: EOMI. No redness or drainage. Conjunctivae normal. ENT: Mucous membranes pink and moist. Nares mildly congested with rhinorrhea. Left TM normal. Right TM mildly injected. Throat normal. Uvula midline. NECK: Normal AROM. Supple. Right tonsillar lymphadenopathy and tenderness. CHEST: No respiratory distress. Clear to auscultation. HEART: Regular rate and rhythm. No murmur appreciated. EXTREMITIES: Normal range of motion. No edema. SKIN: Warm, dry, no rash. Capillary refill normal. Normal skin turgor. NEURO: No focal deficits. Alert and oriented x3. Gait steady. PSYCH: Normal affect. No signs of depression or anxiety. Course Course Level of Care: Express Care Visit Vital Signs Vital signs: Vital Signs Temperature 97.4 F L 02/08/25 11:05 Pulse Rate 69 02/08/25 11:05 Respiratory Rate 16 02/08/25 11:05 Blood Pressure 133/74 02/08/25 11:05 Pulse Oximetry 97 11/15/25 11:05 Temperature 97.4 F L 02/08/25 11:05 Pulse Rate 69 02/08/25 11:05 Respiratory Rate 16 02/08/25 11:05 Blood Pressure 133/74 02/08/25 11:05 Pulse Oximetry 97 02/08/25 11:05 Reviewed Medical Decision Making MDM Narrative Medical decision making narrative: 74-year-old male patient presents today with right ear pain and bilateral sinus pressure x2 days. Denies sore throat, fever, cough. He has tried an antihistamine, Tylenol, and Flonase with mild relief. Reports history of sinusitis. Upon exam, patient has some congestion and rhinorrhea with right TM that is injected. He will be treated with some amoxicillin for right otitis media. Remainder of symptoms are likely viral. Recommend continuing OTC treatment for viral symptoms as well. Patient agrees with plan. Vital signs stable. Anticipatory guidance given. Differential Diagnosis Differential Diagnosis: URI, sinusitis, otitis media, otitis externa, ruptured TM, serous otitis Vital Signs Vital Signs: Vital Signs Temperature 97.4 F L 02/08/25 11:05 Pulse Rate 69 02/08/25 11:05 Respiratory Rate 16 02/08/25 11:05 Blood Pressure 133/74 02/08/25 11:05 Pulse Oximetry 97 02/08/25 11:05 Temperature 97.4 F L 02/08/25 11:05 Pulse Rate 69 02/08/25 11:05 Respiratory Rate 16 02/08/25 11:05 Blood Pressure 133/74 02/08/25 11:05 Pulse Oximetry 97 02/08/25 11:05 Critical Care Time Critical Care Time Critical Care Time: No Discharge Plan Discharge Clinical Impression: Acute right otitis media Upper respiratory infection Qualifiers: URI type: unspecified URI Qualified Code(s): J06.9 - Acute upper respiratory infection, unspecified Patient Disposition: Home Condition: Stable Instructions: Antibiotic Form, Ear Infection (ED), Upper Respiratory Infection (DC) Additional Instructions: Please take the Augmentin as prescribed until gone for your ear infection. The remainder of your symptoms are likely viral and should resolve on their own in approximately 1 week. Continue [id number] medication for symptoms as well. Follow-up with your PCP in 1 week if symptoms are not improving. Patient Language: Togolese Prescriptions: New amoxicillin-pot clavulanate 875-125 mg tablet 1 tablet PO Q12H 5 Days Qty: 10 0RF No Action PreserVision AREDS 2,148 mcg-113 mg-45 mg-17.4mg Tablet 2 tablet PO BID Rx Instructions: administer with AM and PM meals multivitamin Tablet 1 tablet PO DAILY Xarelto 20 mg tablet 20 mg PO DAILY Rx Instructions: must administer with evening meal fluticasone propionate [Flonase Allergy Relief] 50 mcg/actuation spray,suspension 2 spray intranasal BID PRN (Reason: ALLERGIES) Qty: 16 0RF Rx Instructions: administer into each nostril acetaminophen [Acetaminophen Extra Strength] 500 mg Tablet 1,000 mg PO DAILY atorvastatin 80 mg tablet 80 mg PO HS Qty: 90 0RF clopidogrel 75 mg tablet 75 mg PO DAILY Qty: 100 1RF Rx Instructions: TAKE 1 TABLET BY MOUTH DAILY valsartan-hydrochlorothiazide 160-12.5 mg tablet See Rx Instructions .ROUTE .COMPLEX Qty: 100 1RF Dose Instruction: TAKE 1 TABLET BY MOUTH DAILY Rx Instructions: TAKE 1 TABLET BY MOUTH DAILY metoprolol tartrate 50 mg tablet See Rx Instructions .ROUTE .COMPLEX Qty: 100 1RF Dose Instruction: TAKE ONE-HALF TABLET BY MOUTH TWICE DAILY Rx Instructions: TAKE ONE-HALF TABLET BY MOUTH TWICE DAILY Follow-up/Referrals: Eileen Shields DO [Primary Care Provider, Family Practice] Time of Disposition: 12:15
== END 2025-02-08 12:22 | disposition home or self-care (01) ==
PROVIDERS: Emergency Provider Nurse Practitioner; PCP Family Medicine
DX: H66.91 Otitis media, unspecified, right ear (principal); J06.9 Acute upper respiratory infection, unspecified; E78.2 Mixed hyperlipidemia; I25.10 Atherosclerotic heart disease of native coronary artery without angina pectoris; I10 Essential (primary) hypertension; Z87.891 Personal history of nicotine dependence; Z79.899 Other long term (current) drug therapy; Z79.01 Long term (current) use of anticoagulants
CPT/HCPCS: 99213; G0463